=== PATIENT | female | born 1930 | race Caucasian/White ===

== ENCOUNTER 2018-10-14 12:28 | Inpatient (IN) ==
--- NOTE | 2018-10-14 12:57 | Diag Imaging Result Doc PS360 ---
EXAM: CT HEAD W/O CONTRAST HISTORY: AMS TECHNIQUE: CT head without contrast COMPARISON: None. FINDINGS: No parenchymal hemorrhage. No epidural or subdural hematoma. No subarachnoid hemorrhage. There is atrophy with chronic microvascular ischemic changes. No mass identified on this noncontrasted exam. No hydrocephalus. There is mucosal thickening in the maxillary sinuses.. IMPRESSION: 1.No hemorrhage 2.Atrophy with chronic microvascular ischemic changes This exam was performed using automated exposure control, adjustment of mA or kV according to patient size, and/or use of iterative reconstruction technique. Electronically signed by Wilder Pal 10/14/2018 12:55 PM
[2018-10-14] MEDS ORDERED: CARDIZEM IV ONE (13:20)
[2018-10-14] MEDS ORDERED: NS 1,000 ML IV ONE ×3 (13:24→17:32)
--- NOTE | 2018-10-14 14:04 | PROVIDER DOCUMENTATION ---
This chart was entered by Blessing Arango Scribe, acting as scribe for Dorina Fonseca MD. HPI-General Adult - General Chief Complaint: Altered Mental Status Stated Complaint: AMS Time Seen by Provider: 10/14/18 12:41 Source: family Allergies/Adverse Reactions: Patient Allergies Allergy/AdvReac Type Severity Reaction Status Date / Time No Known Allergies Allergy Verified 10/14/18 14:20 Home Medications: Home Medication List Medication Instructions Recorded Confirmed Last Taken Type Amlodipine [Norvasc] 10 mg PO DAILY 10/14/18 10/14/18 10/14/18 History Famotidine [Pepcid AC] 20 mg PO QAM 10/14/18 10/14/18 10/14/18 History Lisinopril/Hydrochlorothiazide 1 each PO QAM 10/14/18 10/14/18 10/14/18 History [Lisinopril-Hctz 20-12.5 mg Tab] Metoprolol Succinate E.r. [Toprol 100 mg PO DAILY 10/14/18 10/14/18 10/14/18 History Xl] Naproxen Sodium [Aleve] 220 mg PO BID 10/14/18 10/14/18 1 Day Ago History ~10/13/18 - History of Present Illness -Gen Adult Nature of Presenting Problems: 88 y/o female presents to ED with AMS and confusion onset 1 week ago. Family of pt is present and reports she has been complaining of low back pain, dysuria, and "pulling" at her underwear/pants for the past 2 weeks. Family states she can only move from her bed to a chair with lots of assistance and has not wanted to get out of bed for 1.5 weeks. Family reports she fell 1 month ago. Pt is alert and nontoxic. Location of Pain/Injury: reports: none Pain Radiation: reports: no radiation Quality of Pain: reports: none Severity: reports: mild Onset/Duration: reports: 1 week ago Timing: reports: still present Context/Activities at Onset: reports: none Modifying Factors: improves with: nothing Associated Symptoms: reports: back/neck pain (low back), fatigue, other (AMS, confusion, fall, limited movement, dysuria) Similar Symptoms Previously?: No Recently seen or treated by another doctor?: No Review of Systems - Adult - REVIEW OF SYSTEMS - ADULT ROS:: ROS per family Constitutional: reports: fatique, other (AMS, confusion). denies: chills, fever Eyes: reports: no symptoms reported Ears, Nose, Mouth & Throat: reports: no symptoms reported Cardiovascular: denies: chest pain, palpitations Respiratory: denies: cough, shortness of breath Gastrointestinal: denies: abdominal pain, diarrhea, nausea, vomiting Genitourinary: reports: dysuria, other (pulling at underwear/pants) Musculoskeletal: reports: back pain (low), other (fall). denies: joint pain Integumentary: reports: no symptoms reported Neurological: reports: other (AMS, confusion). denies: dizziness/vertigo, seizure Psychiatric: reports: no symptoms reported Endocrine: reports: no symptoms reported Hematologic/Lymphatic: reports: no symptoms reported Allergic/Immunologic: reports: no symptoms reported All Other Systems: Reviewed and Negative Past History - Adult - PAST MEDICAL HISTORY-ADULT Review of Records: reports: Old Records Reviewed, Nursing Assessment Review, Medications Reviewed Major Childhood Illnesses: reports: denies history Cardiovascular: reports: A-Fib Obstetrical/Gynecological: reports: other (breast cancer) - PRIOR SURGERIES/PROCEDURES Surgical/Procedure History: reports: none - IMMUNIZATION STATUS Childhood Immunizations: See Nurse Assessment Flu Vaccine: See Nurse Assessment - FAMILY HISTORY Family History: reviewed, not pertinent - SOCIAL HISTORY Smoking: non-smoker Substance Use: none/never Alcohol Use Frequency: never Living Situation: family Physical Exam-General - PHYSICAL EXAM-ADULT Exam Limited by: AMS Initial Vital Signs Reviewed: Yes - CONSTITUTIONAL General Appearance: appears well, alert, mild distress - EYES Eyes: PERRL/EOMI, pink conjunctivae - HEAD, EARS, NOSE, MOUTH & THROAT HENMT: normocephalic/atraumatic - NECK Neck: non-tender, supple - RESPIRATORY Respiratory: lungs clear, normal breath sounds - CARDIOVASCULAR Cardiovascular: tachycardia - GASTROINTESTINAL (ABDOMEN) Abdominal Exam: normal bowel sounds, soft - LYMPHATIC Lymphatic: no adenopathy - MUSCULOSKELETAL Back Exam: normal inspection Peripheral Pulses: radial (R): 2+, radial (L): 2+, dorsalis-pedis (R): 2+, dorsalis-pedis (L): 2+ - SKIN Integumentary: normal color, warm/dry - NEUROLOGIC Neurologic: wide area network engineer II-XII nml as tested, other (AMS) - PSYCHIATRIC Psych/Mental Status: disoriented x 3, anxious, other (AMS) Progress - PLAN OF CARE/RESULTS Progress/Plan/Lab Results: Vital Signs - 8 hr 10/14/18 13:15 Temperature 98.8 F Pulse Rate 136 H Respiratory Rate 22 Blood Pressure 146/115 O2 Sat by Pulse Oximetry 95 Orders Category Date Time Status CT HEAD W/O CONTRAST [CT] Stat Exams 10/14/18 12:40 Completed pt arrived in afib rate 130s w AMS, sent to CT and returned to room HR in 170s, awake and alert but not interactive for a good exam, she rolled to her left side without difficulty and no step offs or swelling of lower back which is the location that her family says she complains about, head CT unremarkable PMH afib, today with RVR, responding somewhat to cardizem 10mg but BP decreased and had to reduce, HR 130s-160s, likely being pushed by sepsis, will likely need digoxin IV, will d/w ICU hospitalist Laboratory Tests 10/14/18 10/14/18 10/14/18 13:05 13:05 13:05 WBC 11.94 H RBC 5.00 Hgb 15.2 Hct 45.6 MCV 91.2 MCH 30.4 MCHC 33.3 RDW Std Deviation 12.9 Plt Count 271 MPV 10.5 H Immature Gran % (Auto) 0.7 H Neut % (Auto) 82.1 H Lymph % (Auto) 7.6 L Kane % (Auto) 9.5 H Eos % (Auto) 0.0 Baso % (Auto) 0.1 Immature Gran # (Auto) 0.08 H Neut # (Auto) 9.81 H Lymph # (Auto) 0.91 L Kane # (Auto) 1.13 H Eos # (Auto) 0.00 Baso # (Auto) 0.01 PT 16.1 H INR 1.19 PTT (Actin FS) Sodium 138 Potassium 3.2 L Chloride 91 L Carbon Dioxide 25 Anion Gap 22 BUN 26 H Creatinine 0.8 Estimated GFR/1.73 m2 > 60 BUN/Creatinine Ratio 33 Glucose 195 H Calculated Osmolality 286 Calcium 9.9 Total Bilirubin 1.72 H AST 22 ALT 16 Alkaline Phosphatase 75 Creatine Kinase Troponin T Total Protein 7.3 Albumin 4.4 Globulin 2.9 Albumin/Globulin Ratio 1.5 Plasma Lactate Urine Source Urine Color Urine Turbidity Urine pH Ur Specific [place] Urine Protein Ur Glucose (Stick) Ur Ketones (Stick) Urine Blood Urine Nitrite Urine Bilirubin Urobilinogen Dipstick Urine Leukocytes Urine WBC (Auto) Urine RBC (Auto) U Epithel Cells (Auto) Urine Bacteria (Auto) Urine Crystals Small Round Cells Urine Casts Urine Yeast-like Cells 10/14/18 10/14/18 10/14/18 13:05 13:05 13:05 WBC RBC Hgb Hct MCV MCH MCHC RDW Std Deviation Plt Count MPV Immature Gran % (Auto) Neut % (Auto) Lymph % (Auto) Kane % (Auto) Eos % (Auto) Baso % (Auto) Immature Gran # (Auto) Neut # (Auto) Lymph # (Auto) Kane # (Auto) Eos # (Auto) Baso # (Auto) PT INR PTT (Actin FS) 27.0 Sodium Potassium Chloride Carbon Dioxide Anion Gap BUN Creatinine Estimated GFR/1.73 m2 BUN/Creatinine Ratio Glucose Calculated Osmolality Calcium Total Bilirubin AST ALT Alkaline Phosphatase Creatine Kinase 156 Troponin T Total Protein Albumin Globulin Albumin/Globulin Ratio Plasma Lactate 2.8 H Urine Source Urine Color Urine Turbidity Urine pH Ur Specific [place] Urine Protein Ur Glucose (Stick) Ur Ketones (Stick) Urine Blood Urine Nitrite Urine Bilirubin Urobilinogen Dipstick Urine Leukocytes Urine WBC (Auto) Urine RBC (Auto) U Epithel Cells (Auto) Urine Bacteria (Auto) Urine Crystals Small Round Cells Urine Casts Urine Yeast-like Cells 10/14/18 10/14/18 13:05 13:51 WBC RBC Hgb Hct MCV MCH MCHC RDW Std Deviation Plt Count MPV Immature Gran % (Auto) Neut % (Auto) Lymph % (Auto) Kane % (Auto) Eos % (Auto) Baso % (Auto) Immature Gran # (Auto) Neut # (Auto) Lymph # (Auto) Kane # (Auto) Eos # (Auto) Baso # (Auto) PT INR PTT (Actin FS) Sodium Potassium Chloride Carbon Dioxide Anion Gap BUN Creatinine Estimated GFR/1.73 m2 BUN/Creatinine Ratio Glucose Calculated Osmolality Calcium Total Bilirubin AST ALT Alkaline Phosphatase Creatine Kinase Troponin T < 0.010 Total Protein Albumin Globulin Albumin/Globulin Ratio Plasma Lactate Urine Source CATH Urine Color ORANGE Urine Turbidity TURBID Urine pH 7.5 Ur Specific [place] 1.019 Urine Protein 600 A Ur Glucose (Stick) NEGATIVE Ur Ketones (Stick) 100 A Urine Blood MODERATE A Urine Nitrite NEGATIVE Urine Bilirubin NEGATIVE Urobilinogen Dipstick 6 A Urine Leukocytes MODERATE A Urine WBC (Auto) TNTC A Urine RBC (Auto) TNTC A U Epithel Cells (Auto) >10 A Urine Bacteria (Auto) 4+ Urine Crystals TRIPLE PHOS PRESENT Small Round Cells Not Reportable Urine Casts NONE SEEN Urine Yeast-like Cells NONE SEEN d/w pt and family findings, treatment here and admit, with RISK ADVISOR hospitalist in room, d/w pt and family DNR status, there is no form with her wishes and she is not always able to be appropriate to have this kind of conversation, RISK ADVISOR has asked cardiology to get involved with afib w RVR and will leave the digoxin or not with the cards MD Result Diagrams: 10/14/18 13:05 10/14/18 13:05 - EKG 1 Time of EKG reading by physician:: 12:54 EKG Read and Signed by:: Dorina Fonseca EKG Interpretation (*Must complete 3 of following elements*): Abnormal Rate: 135 Rhythm: Afib w/ RVR [place]: normal QRS: RBB, other (L posterior fascicular block; bifascicular block) GA Interval: normal ST Wave: normal 2 Time of EKG reading by physician:: 15:23 EKG Read and Signed by:: Dorina Fonseca EKG Interpretation (*Must complete 3 of following elements*): Abnormal Rate: 142 Rhythm: Afib with RVR [place]: right QRS: normal, other (possible R ventricular hypertrophy) GA Interval: normal ST Wave: non-specific ST changes (consider anterior ischemia) - XRAY 1 XRAY Study: Lumbar Spine Impression: Abnormal (COMMENT: There is generalized osteopenia. There is loss of height anteriorly at T11. There is subsidence of the upper endplate of L4 and possibly also of L5. Findings present in T11 were present on the lateral chest radiograph of 05/18/2016. No previous studies are available for comparison of the lumbar spine. IMPRESSION: Osteoporosis with old compression fractures of T11 and L4. Electronically signed by Kadeem Fiore 10/14/2018 2: 37 PM) 2 XRAY Study: Chest Impression: Abnormal (COMMENT: The left hemidiaphragm is elevated. There is a large hiatal hernia. There is some ill-defined opacity in the left lower lobe which was not appreciable on the previous study of 08/17/2016. IMPRESSION: Left lower lobe and possible lingular atelectasis versus pneumonia. Electronically signed by Kadeem Fiore 10/14/2018 2:46 PM) - CT/MRI 1 CT Study: Head Impression: Normal (FINDINGS: No parenchymal hemorrhage. No epidural or subdural hematoma. No subarachnoid hemorrhage. There is atrophy with chronic microvascular ischemic changes. No mass identified on this noncontrasted exam. No hydrocephalus. There is mucosal thickening in the maxillary sinuses.. IMPRESSION: 1.No hemorrhage 2.Atrophy with chronic microvascular ischemic changes This exam was performed using automated exposure control, adjustment of mA or kV according to patient size, and/or use of iterative reconstruction technique. Electronically signed by Wilder Pal 10/14/2018 12:55 PM) Departure - Departure Date of Disposition Decision: 10/14/18 Time of Disposition Decision: 16:30 DIAGNOSIS: Atrial fibrillation with rapid ventricular response, UTI (urinary tract infection), Compression fracture, Sepsis Pneumonia Qualifiers: Aspiration pneumonia type: unspecified Laterality: left Lung location: lower lobe of lung Disposition: ADMITTED INPATIENT 09 Certified Medical Emergency: Emergent Condition: Fair Referrals and Follow-Ups: None,PCP [Primary Care Provider] - - Critical Care Note This patient required my direct & personal management of CC.: Yes Total Time (mins): 30 Critical Care Statement: This patient required my direct personal management to treat or rule out processes, the absence of which, could potentiallly result in sudden, clinically significant life or limb threatening deterioration. Attestation - Physician/ DANILO Attestation Patient care was provided by Advanced Practice Provider:: No The physician spent face to face time with patient:: Yes Advanced Practice Provider documentation review:: Supervising physician onsite and consulted in the evaluation and care of this patient. The physician did have a face to face encounter with the patient. This chart was documented by the indicated scribe, (Blessing Arango, Jose) and accurately reflects the services I performed and decisions made by me, Dorina Fonseca MD, as attested by the provider's signature.
[2018-10-14 14:07] LABS: BASO# 0.01 X1000 (0.0-0.2); BASO% 0.1 % (0.0-0.8); HEMATOCRIT 45.6 % (37.0-47.0); HEMOGLOBIN 15.2 g/dL (12.0-16.0); IMM GRAN# 0.08 X1000 (0.0-0.04); IMM GRAN% 0.7 % (0.0-0.5); LYMPH# 0.91 X1000 (1.2-3.4); LYMPH% 7.6 % (20.5-51.1); MCH 30.4 PG (27-31); MCHC 33.3 g/dL (33-37); MCV 91.2 FL (81-99); MONO# 1.13 X1000 (0.11-0.59); MONO% 9.5 % (1.7-9.3); MPV 10.5 FL (7.4-10.4); NEUT# 9.81 X1000 (1.4-6.5); NEUT% 82.1 % (42.2-75.2); PLT 271 X1000 (130-400); RDW 12.9 % (11.5-14.5); WBC 11.94 X1000 (4.8-10.8)
[2018-10-14 14:11] LABS: INR 1.19; PROTIME 16.1 Seconds (11.0-16.0)
[2018-10-14 14:12] LABS: AGAP 22; ALB/GLOB RATIO 1.5; ALBUMIN 4.4 g/dL (3.5-5.0); ALKALINE PHOSPHATASE 75 U/L (32-104); BUN 26 mg/dL (8-22); CALCIUM 9.9 mg/dL (8.8-10.2); CHLORIDE 91 mmol/L (98-107); COSMO 286; CREATININE 0.8 mg/dL (0.5-0.9); ESTIMATED GFR > 60; GLUCOSE 195 mg/dL (70-104); GOT 22 U/L (10-30); GPT 16 U/L (10-36); POTASSIUM 3.2 mmol/L (3.5-5.1); SODIUM 138 mmol/L (136-145); TCO2 25 mmol/L (25-35); TOTAL BILIRUBIN 1.72 mg/dL (0.20-1.00); TOTAL PROTEIN 7.3 g/dL (6.3-8.3)
[2018-10-14 14:37] LABS: BILIRUBIN URINE NEGATIVE (NEGATIVE); BLOOD URINE MODERATE (NEGATIVE); COLOR ORANGE; GLUCOSE URINE NEGATIVE (NEGATIVE); KETONE URINE 100 mg/dL (NEGATIVE); LEUKOCYTES URINE MODERATE (NEGATIVE); NITRITE URINE NEGATIVE (NEGATIVE); PH URINE 7.5; PROTEIN URINE 600 mg/dL (NEGATIVE); SP GRAVITY URINE 1.019; TURBIDITY URINE TURBID (CLEAR); UR EPITHELIAL CELLS >10 /HPF (<10); URINE BACTERIA 4+ /HPF; URINE RBC TNTC /HPF (<10); URINE SOURCE CATH; URINE WBC TNTC /HPF (<10); UROBILINOGEN URINE 6 mg/dL (NORMAL)
--- NOTE | 2018-10-14 14:39 | Diag Imaging Result Doc PS360 ---
EXAM: P'TBLE-LUMBAR SPINE 1 VIEW 10/14/2018 HISTORY: low back pain TECHNIQUE: Crosstable lateral COMMENT: There is generalized osteopenia. There is loss of height anteriorly at T11. There is subsidence of the upper endplate of L4 and possibly also of L5. Findings present in T11 were present on the lateral chest radiograph of 05/18/2016. No previous studies are available for comparison of the lumbar spine. IMPRESSION: Osteoporosis with old compression fractures of T11 and L4. Electronically signed by Kadeem Fiore 10/14/2018 2:37 PM
[2018-10-14] MEDS: CARDIZEM 100 MG/NS 100 MG/100 ML IVPB IV SCH (14:47)
--- NOTE | 2018-10-14 14:49 | Diag Imaging Result Doc PS360 ---
EXAM: CHEST-1 VIEW 10/14/2018 HISTORY: SEPSIS PROTOCOL TECHNIQUE: AP portable at 1435 COMMENT: The left hemidiaphragm is elevated. There is a large hiatal hernia. There is some ill-defined opacity in the left lower lobe which was not appreciable on the previous study of 08/17/2016. IMPRESSION: Left lower lobe and possible lingular atelectasis versus pneumonia. Electronically signed by Kadeem Fiore 10/14/2018 2:46 PM
[2018-10-14] MEDS ORDERED: ZOFRAN IV ONE ×2 (15:13→17:36)
--- NOTE | 2018-10-14 15:13 | EKG Report ---
Test Performed on : 10/14/2018 12:54:03 PM Test Reason : ED. NO order in [place] Blood Pressure : / mmHG Vent. Rate : 135 BPM Atrial Rate : 150 BPM P-R Int : 000 ms QRS Dur : 124 ms QT Int : 366 ms P-R-T Axes : 000 126 -03 degrees QTc Int : 549 ms Atrial fibrillation. with rapid ventricular response. Right bundle branch block Left posterior fascicular block Bifascicular block Abnormal ECG No previous ECGs available Unconfirmed Result
[2018-10-14] MEDS ORDERED: VANCOMYCIN 1 GM/NS 1 GM/250 ML IVPB IV ONE (15:15)
[2018-10-14] MEDS ORDERED: ZOSYN 4.5 GM in NS 100 ML IV ONE (15:15)
[2018-10-14 15:21] LABS: URINE CASTS NONE SEEN; URINE CRYSTALS TRIPLE PHOS PRESENT; URINE YEAST NONE SEEN
[2018-10-14] MEDS ORDERED: LANOXIN IV ONE (16:47)
[2018-10-14] MEDS ORDERED: DUONEB (A & A) INH PRN (16:49)
[2018-10-14] MEDS ORDERED: KLOR-CON PO ONE (16:49)
[2018-10-14] MEDS ORDERED: TYLENOL PO PRN (16:49)
[2018-10-14] MEDS ORDERED: NS NEB INH SCH (17:00)
[2018-10-14] MEDS ORDERED: MAGNESIUM SULFATE 2 GM/S.W.I. 2 GM/50 ML IVPB IV ONE (17:31)
--- NOTE | 2018-10-14 18:14 | HISTORY AND PHYSICAL ---
DATE OF ADMISSION: 10/14/2018. PRIMARY CARE PHYSICIAN: Dr. Shaun Keys. CHIEF COMPLAINT: Back pain, lower back pain, dysuria, foul-smelling urine, nausea and some confusion. HPI: Ms. Nenita Carrillo is an [id number] female who is in no acute distress. She has a history of atrial fibrillation and is only on aspirin. No fan mail clerk managing her. She presents with complaints of lower back pain, urinary symptoms such as dysuria, foul-smelling urine and frequency and also some nausea and decreased appetite with no bowel movement for about two weeks. She denies shortness of breath or cough. We will admit to the ICU as she was started on diltiazem which made her hypotensive. It is obvious that she has a urinary tract infection per urinalysis, and then on her chest x-ray, she has a left lower lobe pneumonia. We will consult cardiology and treat her for sepsis. PAST MEDICAL HISTORY: 1. Atrial fibrillation. 2. Hypertension. 3. Left breast cancer since 2016 on chemotherapy pills. Followed by Dr. Patton. 4. Glaucoma. Can only make out shapes. 5. Bilateral knee arthritis. SURGICAL HISTORY: None. SOCIAL HISTORY: Denies tobacco or alcohol. Lives with her daughter and son. She is essentially chair bound but has been bed bound for two weeks. FAMILY HISTORY: Hypertension and stroke in father. Mother with diabetes and heart attack. ALLERGIES: NO KNOWN DRUG ALLERGIES. HOME MEDICATIONS: 1. Norvasc 10 mg p.o. daily. 2. Pepcid AC 20 mg p.o. daily. 3. Lisinopril hydrochlorothiazide 20-12.5 mg, 1 tablet p.o. daily. 4. Toprol XL 100 mg p.o. daily. 5. Aleve 220 mg p.o. twice daily. 6. Aspirin daily. REVIEW OF SYSTEMS: All are negative except for those mentioned above in the HPI. She has also gone from being chair bound to bed bound over the last two weeks. PHYSICAL EXAM: VITAL SIGNS: Temperature 98.8, heart rate 31, blood pressure 124/67 and O2 saturation 94% on room air. GENERAL: Ms. Nenita Carrillo is an [id number] female. She is in no acute distress. She is wanting to go home, but she is able to follow some commands and able to answer some questions. HEENT: Normocephalic, atraumatic. Pupils are equal, round and reactive to light. Extraocular movements intact. Mucous membranes are dry. NECK: Trachea midline. CARDIOVASCULAR: Irregularly, irregular tachycardic rate and rhythm with no rubs , gallops or murmurs. Trace lower extremity edema. There are +2 dorsalis and radial pulses. Negative JVD or carotid bruits. PULMONARY: Clear to auscultate bilateral breath sounds. No accessory muscle use or work of breathing noted. GI: Soft and nontender. Nondistended. Positive bowel sounds x4. EXTREMITIES: Moves all extremities equally with decreased range of motion and strength. NEUROLOGICAL: Oriented x2 to name and location. Disoriented to time and year. She will follow some simple commands. She does seem mildly agitated. Requesting to go home. SKIN: Warm, dry and intact. LABORATORY DATA: White blood cells 11,000, hemoglobin 15, hematocrit 45 and platelet count 271. INR 1.19. PTT 27. Sodium 138, potassium 3.2, BUN 26, creatinine 0.8, glucose 195 and calcium 9.9, bilirubin 1.72, AST 22, ALT 16, CK 156, troponin less than 0.01, albumin 4.4, and serum lactate 2.8. Urinalysis is turbid, 600 protein, 100 ketones, moderate blood, negative nitrite, moderate leukocytes, too numerous to count white blood cells, too numerous to count red blood cells, 4+ bacteria. IMAGING: Head CT showed no hemorrhage. Chronic microvascular ischemic changes. Nothing acute. Lumbar spine x-ray showed osteoporosis with old compression fractures of T11 and L4. Chest x-ray showed left lower lobe and possible lingular atelectasis versus pneumonia. EKG showed atrial fibrillation with a rapid ventricular response rate of 135. ASSESSMENT AND PLAN: 1. Sepsis secondary to left lower lobe pneumonia and urinary tract infection. She has positive lactate and positive white blood cells. She will be on IV fluid hydration per protocol and broad spectrum antibiotics. 2. Community acquired pneumonia. Again, she will be on antibiotic therapy. We will get a sputum culture and do Xopenex and Atrovent for nebulizers. 3. Urinary tract infection. See #1. 4. Atrial fibrillation with rapid ventricular response with a history of chronic atrial fibrillation on aspirin therapy only. Likely tachycardic secondary to sepsis. She received Cardizem. The initial bolus, though, did drop her blood pressure. She has been continued on the drip with a blood pressure ranging in the one-teens. We will do one time digoxin. Should improve after IV fluid hydration and antibiotic therapy. We will consult cardiology, Dr. Stratton. 5. Hypertension. Hold antihypertensives as she has had hypotension here. 6. Left breast cancer diagnosed in 2016. Only on chemotherapy pills. Followed by Dr. Patton. No mastectomy. 7. Glaucoma. She is legally blind. She can only make out shapes. 8. DVT prophylaxis. She is on aspirin. We will do low dose Lovenox. Dictated by JC Pratt for Dori Goldstein MD cc: JC Pratt MD I performed a face to face encounter on this patient. All labs and imaging were reviewed by me. I agree with the H&P as dictated. The patient presented to the ER with a chief complaint of confusion, dysuria and back pain. The patient was noted to have a UTI. A chest xray was done which revealed a pneumonia. On exam, the patient was noted to be oriented to person and place only. Her heart sounds were irregularly irregular and her breath sounds were coarse to auscultation bilaterally. The patient will be admitted with a diagnosis of sepsis secondary to pneumonia and uti. Blood and urine cultures have been obtained. IV fluids and broad spectrum antibiotics will also be initiated. MTDD
[2018-10-14] MEDS: XOPENEX NEB INH SCH ×2 (19:30→22:45)
[2018-10-14] MEDS: ATROVENT NEB INH SCH ×2 (19:30→22:45)
[2018-10-14] MEDS: ZOSYN 3.375 GM in NS 50 ML IV SCH (22:33)
[2018-10-15] MEDS: CARDIZEM 100 MG/NS 100 MG/100 ML IVPB IV SCH ×2 (00:25→17:09)
[2018-10-15] MEDS: XOPENEX NEB INH SCH ×6 (03:35→23:30)
[2018-10-15] MEDS: ATROVENT NEB INH SCH ×6 (03:35→23:30)
[2018-10-15 05:30] LABS: ALLEN TEST YES; BE -3.4 mmoll (-3.0-3.0); BLOOD TYPE ARTERIAL; HCO3-(ACT) 22.2 mmoll (20.0-26.0); O2(CT) 17.6 mL/dL (15.0-23.0); PCO2(98.6) 31 mmHg (35-45); PO2(98.6) 109 mmHg (60-100); SAMPLE BLOOD; SAO2 98.4 % (95.0-100.0); THB 13.1 g/dL (11.5-17.4); pH(98.6) 7.42 (7.35-7.45)
[2018-10-15 05:31] LABS: MODALITY CANNULA
[2018-10-15] MEDS: ZOSYN 3.375 GM in NS 50 ML IV SCH ×3 (05:55→20:15)
[2018-10-15] MEDS ORDERED: LOVENOX SUBQ SCH (06:00)
[2018-10-15 07:26] LABS: EOS# 0.06 X1000 (0.0-0.7); EOS% 0.4 % (0.0-10.0); HEMATOCRIT 41.6 % (37.0-47.0); HEMOGLOBIN 13.8 g/dL (12.0-16.0); IMM GRAN# 0.11 X1000 (0.0-0.04); IMM GRAN% 0.7 % (0.0-0.5); LYMPH# 1.01 X1000 (1.2-3.4); LYMPH% 6.6 % (20.5-51.1); MCHC 33.2 g/dL (33-37); MCV 93.5 FL (81-99); MONO# 2.02 X1000 (0.11-0.59); MONO% 13.3 % (1.7-9.3); MPV 10.9 FL (7.4-10.4); NEUT# 12.02 X1000 (1.4-6.5); PLT 199 X1000 (130-400); RBC 4.45 XMIL (4.2-5.4); RDW 13.3 % (11.5-14.5); WBC 15.22 X1000 (4.8-10.8)
[2018-10-15 07:49] LABS: AGAP 22; ALB/GLOB RATIO 1.4; ALBUMIN 3.9 g/dL (3.5-5.0); ALKALINE PHOSPHATASE 63 U/L (32-104); BUN 28 mg/dL (8-22); CHLORIDE 102 mmol/L (98-107); COSMO 292; CREATININE 0.7 mg/dL (0.5-0.9); ESTIMATED GFR > 60; GLUCOSE 164 mg/dL (70-104); GOT 26 U/L (10-30); GPT 16 U/L (10-36); POTASSIUM 3.5 mmol/L (3.5-5.1); SODIUM 142 mmol/L (136-145); TCO2 18 mmol/L (25-35); TOTAL BILIRUBIN 1.16 mg/dL (0.20-1.00); TOTAL PROTEIN 6.7 g/dL (6.3-8.3)
--- NOTE | 2018-10-15 08:26 | EKG Report ---
Test Performed on : 10/14/2018 3:23:56 PM Test Reason : ED. NO EKG ORDER FOR MUSE Blood Pressure : / mmHG Vent. Rate : 142 BPM Atrial Rate : 156 BPM P-R Int : 000 ms QRS Dur : 114 ms QT Int : 346 ms P-R-T Axes : 000 122 023 degrees QTc Int : 532 ms Atrial fibrillation. with rapid ventricular response. Right axis deviation Possible Right ventricular hypertrophy T wave abnormality, consider anterior ischemia Abnormal ECG When compared with ECG of 14-OCT-2018 12:54, (Unconfirmed) (RBBB and left posterior fascicular block) is no longer present Unconfirmed Result
[2018-10-15] MEDS ORDERED: ASPIRIN PO SCH (09:00)
[2018-10-15] MEDS: HALDOL IM PRN (09:30)
[2018-10-15] MEDS ORDERED: GEODON IM ONE (10:48)
[2018-10-15] MEDS ORDERED: STERILE WATER INJ. INJ ONE (10:48)
[2018-10-15] MEDS ORDERED: NS 500 ML ONE (11:23)
--- NOTE | 2018-10-15 12:06 | CARDIOLOGY CONSULTATION ---
DATE: 10/15/2018 IMPRESSION: 1. Atrial fibrillation with rapid ventricular rate. 2. Currently admitted with sepsis related to left lower lobe pneumonia and urinary tract infection. 3. Hypertension. 4. Breast cancer involving left breast, diagnosed in 2016. The patient has not had a mastectomy and is being managed with oral chemotherapy. RECOMMENDATIONS: 1. Continue IV Cardizem for rate control. 2. Add digoxin. 3. When the patient can intake orally, we will consider metoprolol. 4. Anticoagulate with Lovenox. 5. Echocardiography. 6. Check thyroid function studies. 7. CHADS-VASc score is 3. Anticoagulation is indicated if her atrial fibrillation is recurrent. 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 HISTORY OF PRESENT ILLNESS: This 88-year-old white female with a past history of hypertension, breast cancer, and glaucoma was admitted with confusion, back discomfort, dysuria, and some nausea. She remains confused, not able to give much in the way of history at the present. There has been some recent frequency and dysuria, as well as nausea and decreased appetite for the past week or so. There has been no shortness of breath, no cough nor chest pain. Chest x-ray suggests left lower lobe pneumonia. She is in atrial fibrillation with rapid ventricular rate, and she has been started on intravenous Cardizem. Her blood pressure has tended to be significantly reduced with IV Cardizem. She received 1 dose of digoxin yesterday. PAST MEDICAL HISTORY: 1. Previous atrial fibrillation in the past. 2. Hypertension. 3. Left breast cancer, diagnosed in 2016. She has not had a mastectomy. 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 She is followed by Dr. Patton. 4. Glaucoma. 5. Bilateral knee arthritis. ALLERGIES: She has no known drug allergies. MEDICATIONS: Currently as listed. SOCIAL HISTORY: She lives with her daughter and son. She is not very mobile and reportedly is "chair bound." She does not smoke or use alcohol. FAMILY HISTORY: Negative for premature coronary disease and positive for stroke and hypertension. REVIEW OF SYSTEMS: Not reliably obtainable given the patient's confusion. PHYSICAL EXAMINATION: General: On physical exam, this is an elderly white female in no distress, who is confused. Vital Signs: Blood pressure 113/80, heart rate 93 and irregular, oxygen saturation 93% to 97% on nasal cannula oxygen. HEENT: Right pupil is larger than the left, anisocoria. Extraocular muscles appear intact. Mucous membranes are moist. Neck: Supple without discernible jugular distention. No carotid bruits. Chest: Clear to auscultation anteriorly. Cardiac Exam: Reveals an irregular rate and rhythm without appreciable murmur or gallop. Abdomen: Soft, nontender. Bowel sounds audible. Extremities: Without edema. Neurologic: Reveals her to be awake and responsive. She gives brief answers to questions and is confused. Speech is fluent. She moves all 4 extremities equally well. DIAGNOSTIC DATA: A 12-lead EKG demonstrates atrial fibrillation with rapid ventricular rate. Right bundle-branch block and right axis deviation. Nonspecific T-wave abnormality demonstrated. Laboratory data includes white blood cell count 15.22, hematocrit 41.6, hemoglobin 13.8, platelet count 199,000. Sodium 142, potassium 3.5, chloride 102, carbon dioxide 18, BUN 28, creatinine 0.7. Troponin T less than 0.01. CPK 156. cc: Alex Grace MD
--- NOTE | 2018-10-15 12:49 | Diag Imaging Result Doc PS360 ---
CHEST-PORTABLE - 10/15/2018 INDICATION: PICC line placement verification COMPARISON: 10/14/2018 FINDINGS: There is a new right PICC line in good position with the catheter tip at the lower SVC. Stable cardiomegaly and pulmonary vascular congestion. Stable opacification of the left lung base. No new infiltrates. IMPRESSION: Good right PICC line placement. Electronically signed by Ar Serrano 10/15/2018 12:47 PM
[2018-10-15] MEDS: LANOXIN IV SCH ×2 (12:57→16:01)
[2018-10-15 14:08] LABS: URINE SOURCE CATH
[2018-10-15 14:20] LABS: BILIRUBIN URINE NEGATIVE (NEGATIVE); BLOOD URINE LARGE (NEGATIVE); COLOR BROWN; GLUCOSE URINE TRACE mg/dL (NEGATIVE); KETONE URINE 80 mg/dL (NEGATIVE); LEUKOCYTES URINE LARGE (NEGATIVE); NITRITE URINE NEGATIVE (NEGATIVE); PH URINE 6.5; PROTEIN URINE 200 mg/dL (NEGATIVE); SP GRAVITY URINE 1.023; TURBIDITY URINE TURBID (CLEAR); UR EPITHELIAL CELLS >10 /HPF (<10); URINE BACTERIA 1+ /HPF; URINE RBC TNTC /HPF (<10); URINE WBC TNTC /HPF (<10); UROBILINOGEN URINE 3 mg/dL (NORMAL)
[2018-10-15 14:30] LABS: URINE CASTS NONE SEEN; URINE CRYSTALS NONE SEEN; URINE YEAST NONE SEEN
[2018-10-15 14:31] LABS: URINE SMALL ROUND CELLS TRANS PRESENT
[2018-10-15] MEDS ORDERED: VANCOMYCIN IV PER PHARMACY MISC SCH (16:00)
--- NOTE | 2018-10-15 16:30 | PROGRESS NOTE ---
DATE: 10/15/2018 SUBJECTIVE: The patient is resting in bed, not in any obvious distress. OBJECTIVE: Vital Signs: Vital signs are as follows: Temperature is 98.1 degrees, pulse 91, respiratory rate 16, blood pressure is 112/80, oxygen saturation is 95%. HEENT: Atraumatic and normocephalic. Cardiovascular system: S1, S2 irregular, tachycardic. Respiratory system: Has evidence of good air entry bilaterally. Abdomen: Soft, nontender. No masses felt. Extremities: No evidence of edema. Central nervous system: Could not be adequately assessed. The patient was resting at time of my visit. LABS AND X-RAYS: WBC 15.22, hematocrit is 41.6 with a platelet count of 199. Sodium is 142, potassium 3.5, chloride 102, bicarbonate is 18. BUN is 29, creatinine 0.7. Urine culture shows gram-negative rods. X-ray of the chest shows opacification of the left lung base. ASSESSMENT AND PLAN: 1. Sepsis secondary to urinary tract infection/pneumonia. Continue antibiotics. Follow up on culture report. 2. Community-acquired pneumonia. Continue antibiotics. Follow up on sputum and blood cultures. 3. Urinary tract infection. Continue antibiotics. Follow up on urine culture. 4. Atrial fibrillation. Continue Cardizem for rate control. 5. Hypertension. Antihypertensives on hold in light of hypotension. 6. History of left breast cancer. Aware. 7. 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 8. Deep vein thrombosis prophylaxis. Lovenox. cc: Jose Miguel Shukla MD
--- NOTE | 2018-10-15 17:09 | ECHO REPORT ---
ORDER DATE: 10/15/2018 INTERPRETING PHYSICIAN: Romulo Bustamante MD INDICATION: An 88-year-old female with dyspnea, atrial fibrillation, hypertension, and breast cancer. M-MODE MEASUREMENTS: Left ventricle end diastole: 4.2 cm. Left ventricle end systole: 2.9 cm. Posterior wall: 1.0 cm. Interventricular septum: 1.0 cm. Left atrium: 5.0 cm. Aortic root: 3.6 cm. SUMMARY OF 2-DIMENSIONAL IMAGIN. This study is technically difficult. The apical views are foreshortened. Apical windows are limited. The patient is in atrial fibrillation. 2. The global systolic function is decreased. Ejection fraction of the left ventricle is estimated at 45% with apical anterior hypokinesis to akinesis. 3. There is also impairment of the apical portion of the right ventricle. The right ventricle is moderately enlarged. 4. The tricuspid valve shows a moderate degree of regurgitation. 5. Pulmonary systolic pressure is estimated at 48 to 53 mmHg. 6. The pulmonic valve is unremarkable. 7. The aortic valve has 3 cusps and they open normally. Color flow mapping is unremarkable. 8. The mitral valve opens normally. Color flow mapping is unremarkable. 9. Diastolic function cannot be properly evaluated here because of the atrial fibrillation. 10.The left atrium is significantly enlarged. 11.There is no pericardial effusion and no sign of thrombus. SUMMARY: In summary, this study shows: 1. Psmh-[id number] impaired systolic function of the left ventricle with apical hypokinesis to akinesis. Ejection fraction is 45%. 2. Enlarged right ventricle with apical impairment of the right ventricle also. 3. Significantly enlarged left atrium. 4. Moderate tricuspid regurgitation. 5. Pulmonary pressure of 48 to 53 mmHg. Clinical correlation is strongly recommended. Consider obtaining a myocardial perfusion study on her. cc: MD Otilia Salinas PA
[2018-10-15] MEDS: VANCOMYCIN 1.4 GM in NS 250 ML IV SCH (17:19)
[2018-10-15] MEDS: LOVENOX SUBQ SCH (17:59)
[2018-10-16] MEDS: ZOSYN 3.375 GM in NS 50 ML IV SCH ×4 (01:18→18:12)
[2018-10-16] MEDS: CARDIZEM 100 MG/NS 100 MG/100 ML IVPB IV SCH ×2 (02:13→16:02)
[2018-10-16] MEDS: XOPENEX NEB INH SCH ×6 (03:23→23:27)
[2018-10-16] MEDS: ATROVENT NEB INH SCH ×6 (03:23→23:27)
[2018-10-16] MEDS: LOVENOX SUBQ SCH ×2 (05:20→18:12)
[2018-10-16 05:44] LABS: EOS# 0.01 X1000 (0.0-0.7); EOS% 0.1 % (0.0-10.0); HEMATOCRIT 40.5 % (37.0-47.0); HEMOGLOBIN 13.5 g/dL (12.0-16.0); IMM GRAN# 0.11 X1000 (0.0-0.04); IMM GRAN% 0.7 % (0.0-0.5); LYMPH# 0.62 X1000 (1.2-3.4); LYMPH% 4.2 % (20.5-51.1); MCH 31.2 PG (27-31); MCHC 33.3 g/dL (33-37); MCV 93.5 FL (81-99); MONO% 5.4 % (1.7-9.3); MPV 11.1 FL (7.4-10.4); NEUT# 13.27 X1000 (1.4-6.5); NEUT% 89.6 % (42.2-75.2); PLT 187 X1000 (130-400); RBC 4.33 XMIL (4.2-5.4); RDW 13.3 % (11.5-14.5); WBC 14.81 X1000 (4.8-10.8)
[2018-10-16 05:57] LABS: AGAP 16; ALB/GLOB RATIO 1.4; ALBUMIN 3.9 g/dL (3.5-5.0); ALKALINE PHOSPHATASE 62 U/L (32-104); BUN 26 mg/dL (8-22); CALCIUM 9.4 mg/dL (8.8-10.2); CHLORIDE 104 mmol/L (98-107); COSMO 297; CREATININE 0.6 mg/dL (0.5-0.9); ESTIMATED GFR > 60; GLUCOSE 190 mg/dL (70-104); GOT 29 U/L (10-30); GPT 18 U/L (10-36); POTASSIUM 3.5 mmol/L (3.5-5.1); SODIUM 144 mmol/L (136-145); TCO2 24 mmol/L (25-35); TOTAL BILIRUBIN 0.97 mg/dL (0.20-1.00); TOTAL PROTEIN 6.7 g/dL (6.3-8.3)
[2018-10-16 07:06] LABS: LYMPHS 5 % (21-51); MONO 5 % (1-9); SEGS 90 % (42-75)
[2018-10-16] MEDS ORDERED: NS 1,000 ML IV SCH (12:45)
--- NOTE | 2018-10-16 15:12 | PROGRESS NOTE ---
DATE: 10/16/2018 SUBJECTIVE: The patient resting comfortably in bed. Her sensorium seems to be much better today. OBJECTIVE: Vital signs: Temperature is 97 degrees, pulse 90, respiratory rate is 21, blood pressure is 131/114, oxygen saturation is 99%. HEENT: She is atraumatic, normocephalic. Cardiovascular: S1, S2. Respiratory system: Has evidence of good air entry bilaterally. Abdomen: Soft, nontender. No masses felt. Extremities: No evidence of edema. Central nervous system: No obvious focal deficit noted. DIAGNOSTIC DATA: WBC is 13.81, hematocrit is 40.5, platelet count of 187,000. Sodium is 144, potassium 3.5, chloride is 104, bicarbonate 24, BUN is 26, creatinine 0.6. Urine culture positive for E coli. Blood cultures show coagulase-negative Staphylococcus. ASSESSMENT AND PLAN: 1. Sepsis secondary to urinary tract infection/pneumonia. Continue antibiotics. 2. Community-acquired pneumonia. Continue antibiotics. We will repeat blood cultures and also get sputum cultures. 3. Urinary tract infection. Continue antibiotics. 4. Atrial fibrillation. Heart rate is controlled. 5. Hypertension. Controlled. 6. History of left breast cancer. Aware. 7. History of glaucoma, as well as legal blindness. Aware. 8. Deep vein thrombosis prophylaxis. Lovenox. cc: Jose Miguel Shukla MD
[2018-10-16] MEDS: NS 1,000 ML IV SCH (15:58)
--- NOTE | 2018-10-16 17:33 | PROGRESS NOTE ---
DATE: 10/16/2018 SUBJECTIVE: Patient is more cooperative today. She seems less confused. She started to take oral intake. She denies any chest discomfort or shortness of breath. She continues in atrial fibrillation with controlled rate on low-dose intravenous Cardizem. OBJECTIVE: Vital Signs: Blood pressure 113/87, heart rate 90 and irregular with ECG monitor showing atrial fibrillation. Oxygen saturation 98% on nasal cannula oxygen. There is no significant jugular venous distention. Chest: Clear to auscultation anteriorly. Cardiac: Exam reveals an irregular rate and rhythm without appreciable murmur or gallop. Extremities: Without edema. LABORATORY DATA: Includes a white blood cell count of 14.81 and hematocrit 30. Laboratory Data includes a white blood cell count of 14.1, hematocrit 40.5, hemoglobin 13.5 and platelet count 187,000. Sodium 144, potassium 3.5, chloride 104, carbon dioxide 24, BUN 26, creatinine 0.6. Echocardiography reports left ventricular ejection fraction approximately 45% with the apical hypokinesis to akinesis. IMPRESSION: 1. Atrial fibrillation. Heart rate better controlled. 2. Patient currently admitted with sepsis, but relates urinary tract infection given abnormal urine culture showing E. Coli. 3. Abnormal echocardiography suggesting possibility of underlying regional coronary atherosclerosis. 4. Hypertension. 5. Breast cancer involving left breast diagnosed in 2016. She has been managed with oral chemotherapy. RECOMMENDATIONS: 1. Transition from intravenous Cardizem to oral metoprolol. 2. Continue with anticoagulation with Lovenox as tolerated. cc: Alex Grace MD
[2018-10-16] MEDS: LOPRESSOR PO SCH (20:30)
[2018-10-17] MEDS: ZOSYN 3.375 GM in NS 50 ML IV SCH ×4 (00:37→18:27)
[2018-10-17] MEDS: ATROVENT NEB INH SCH ×6 (03:46→23:22)
[2018-10-17] MEDS: XOPENEX NEB INH SCH ×6 (03:46→23:22)
[2018-10-17] MEDS: VANCOMYCIN 1.4 GM in NS 250 ML IV SCH (03:56)
[2018-10-17] MEDS: NS 1,000 ML IV SCH ×2 (04:53→22:00)
[2018-10-17] MEDS: LOVENOX SUBQ SCH ×3 (04:54→17:16)
[2018-10-17 05:24] LABS: HEMOGLOBIN 12.7 g/dL (12.0-16.0); IMM GRAN% 0.7 % (0.0-0.5); LYMPH# 0.84 X1000 (1.2-3.4); LYMPH% 5.8 % (20.5-51.1); MCH 30.9 PG (27-31); MCHC 32.6 g/dL (33-37); MCV 94.9 FL (81-99); MONO# 2.03 X1000 (0.11-0.59); MONO% 13.9 % (1.7-9.3); MPV 10.9 FL (7.4-10.4); NEUT# 11.62 X1000 (1.4-6.5); NEUT% 79.6 % (42.2-75.2); PLT 170 X1000 (130-400); RBC 4.11 XMIL (4.2-5.4); RDW 13.6 % (11.5-14.5); WBC 14.59 X1000 (4.8-10.8)
[2018-10-17 06:00] LABS: AGAP 13; ALB/GLOB RATIO 1.5; ALBUMIN 3.7 g/dL (3.5-5.0); ALKALINE PHOSPHATASE 60 U/L (32-104); BUN 27 mg/dL (8-22); CALCIUM 9.1 mg/dL (8.8-10.2); CHLORIDE 108 mmol/L (98-107); COSMO 301; CREATININE 0.6 mg/dL (0.5-0.9); ESTIMATED GFR > 60; GLUCOSE 167 mg/dL (70-104); GOT 46 U/L (10-30); GPT 34 U/L (10-36); POTASSIUM 3.6 mmol/L (3.5-5.1); SODIUM 147 mmol/L (136-145); TCO2 26 mmol/L (25-35); TOTAL BILIRUBIN 1.15 mg/dL (0.20-1.00); TOTAL PROTEIN 6.2 g/dL (6.3-8.3)
--- NOTE | 2018-10-17 08:17 | Diag Imaging Result Doc PS360 ---
CHEST-1 VIEW - 10/17/2018 INDICATION: pneumonia COMPARISON: Prior exams FINDINGS: There is a right PICC line in good position. Stable significant retrocardiac consolidation or effusion. IMPRESSION: No new abnormalities. Electronically signed by Ar Serrano 10/17/2018 8:15 AM
[2018-10-17] MEDS: LOPRESSOR PO SCH ×2 (10:06→18:31)
[2018-10-17] MEDS: CARDIZEM 125 MG in NS 100 ML IV SCH (17:16)
[2018-10-17] MEDS ORDERED: 1/2 NS 500 ML IV ONE (17:42)
[2018-10-17] MEDS ORDERED: D5 1/2 NS + KCL 10 MEQ 1,000 ML IV SCH (17:45)
--- NOTE | 2018-10-17 18:23 | PROGRESS NOTE ---
DATE: 10/17/2018 SUBJECTIVE: Patient more alert and responsive. She denies chest discomfort or dyspnea. Oral intake has been poor. She continues in atrial fibrillation and remains on intravenous low-dose Cardizem. OBJECTIVE: Vital signs: Blood pressure 131/89, heart rate 97 and irregular with ECG monitor showing atrial fibrillation. Oxygen saturation 97% on room air. HEENT: Mucous membranes appear somewhat dry. Neck: Supple with flat neck veins. Chest: Clear to auscultation anteriorly. Cardiovascular: Exam reveals an irregular rate and rhythm without appreciable murmur, rub, gallop. Extremities: There is no evidence of peripheral edema. DIAGNOSTIC STUDIES: Includes white blood cell count 14.59, hematocrit 39.0, hemoglobin 12.7, platelet count 170,000. Sodium 147, potassium 3.6, chloride 108, carbon dioxide 26, BUN 27, creatinine 0.6, glucose 167, albumin 3.7. IMPRESSION: 1. Atrial fibrillation. Duration not clear. 2. Patient currently admitted with sepsis related to urinary tract infection. 3. Hypertension. 4. Breast cancer. RECOMMENDATIONS: 1. Gently increase metoprolol. 2. The patient appears intravascularly volume depleted with hypernatremia. We will initiate intravenous fluid replacement. 3. Continue anticoagulation with Lovenox as tolerated. cc: Alex Grace MD
[2018-10-17] MEDS: POTASSIUM CHLORIDE 10 MEQ in 1/2 NS 1,000 ML IV SCH (18:24)
--- NOTE | 2018-10-17 19:29 | PROGRESS NOTE ---
DATE: 10/17/2018 INTERVAL HISTORY: The patient remains in atrial fibrillation with a regular heart rate. We attempted to take him off the diltiazem drip, but he became again tachycardic and this had to be restarted. Respiratory status is much improved. Denies any current dyspnea, and only minimal nonproductive cough. Afebrile overnight. No other acute events. No new complaints. REVIEW OF SYSTEMS: Negative review of systems. Twelve point Review of Systems negative except as per interval history. LABORATORY: WBC 14.5, hemoglobin 12.7, and hematocrit 39, and platelets 170, 000. Sodium 147, potassium 3.6, chloride 108. Glucose 167. IMAGING: Chest x-ray shows right PICC line in good position. Stable retrocardiac consolidation versus effusion. OBJECTIVE: Vital Signs: T-max 99 degrees, pulse 130, respirations 15, blood pressure 131/89, and O2 saturation 97% on room air. General: No acute distress. Vitals as above. HEENT: Normocephalic and atraumatic. Moist mucous membranes. No cervical adenopathy. Cardiovascular: Irregular and tachycardic. No murmurs noted. Pulmonary: Left lower lobe crackles. Otherwise clear to auscultation bilaterally. Abdomen: Soft, nontender, and nondistended. Bowel sounds positive. Extremities: Peripheral pulses intact. No clubbing, cyanosis or edema. Neurologic: Blind, which is baseline. No other cranial nerve deficits. No focal deficits identified. Psychiatric: Asleep but arouses easily. Answers all questions appropriately. Following commands well. Skin: No new rashes or lesions identified. ASSESSMENT AND PLAN: 1. Sepsis secondary to UTI and possible pneumonia. The patient on antibiotics with vancomycin and Zosyn. Initial blood cultures were 1 of 4 positive for coag-negative staph which is likely contaminant. Repeat blood cultures, no growth to date. Urine culture with Escherichia coli sensitive to everything except Macrobid which is intermediate. Off of oxygen and doing well. Respiratory status improved. May be able to deescalate antibiotics in the near future. 2. Atrial fibrillation with rapid ventricular response. Attempted to wean off till this morning, but developed RVR again. Placed back on diltiazem with good control of heart rate since then. Cardiology following. Awaiting further records from them. 3. Hypertension reasonable control on current regimen. Continue to monitor. 4. Glaucoma and essentially blind, stable. Continue home medications. 5. History of left breast cancer. Aware. 6. Pulmonary hypertension not a major issue at this point but will monitor volume status. 7. Hyperglycemia: no previous history of diabetes. will check A1C and monitor. 8. DVT prophylaxis. [place]. [facility]
[2018-10-17] MEDS: COMBIGAN OPHTH SOLN RIGHT EYE SCH (20:37)
[2018-10-17] MEDS: HALDOL IM PRN (20:38)
[2018-10-17] MEDS: LUMIGAN 0.01% OPH SOLUTION RIGHT EYE SCH (20:38)
[2018-10-18] MEDS: LOPRESSOR PO SCH ×4 (02:25→22:42)
[2018-10-18] MEDS: ZOSYN 3.375 GM in NS 50 ML IV SCH ×4 (02:30→18:30)
[2018-10-18] MEDS: XOPENEX NEB INH SCH ×6 (03:13→23:31)
[2018-10-18] MEDS: ATROVENT NEB INH SCH ×6 (03:13→23:31)
[2018-10-18 05:33] LABS: HEMOGLOBIN A1C 5.9 % (4.8-6.0)
[2018-10-18] MEDS: LOVENOX SUBQ SCH ×2 (05:59→17:37)
[2018-10-18] MEDS: COMBIGAN OPHTH SOLN RIGHT EYE SCH ×2 (09:25→21:55)
[2018-10-18] MEDS: NS 1,000 ML IV SCH ×3 (09:26→22:43)
[2018-10-18] MEDS: POTASSIUM CHLORIDE 10 MEQ in 1/2 NS 1,000 ML IV SCH ×2 (15:14→16:10)
[2018-10-18 16:04] LABS: AGAP 12; BUN 26 mg/dL (8-22); CALCIUM 9.1 mg/dL (8.8-10.2); CHLORIDE 108 mmol/L (98-107); COSMO 294; CREATININE 0.6 mg/dL (0.5-0.9); ESTIMATED GFR > 60; GLUCOSE 167 mg/dL (70-104); SODIUM 143 mmol/L (136-145); TCO2 23 mmol/L (25-35)
[2018-10-18] MEDS: VANCOMYCIN 1.4 GM in NS 250 ML IV SCH (16:12)
[2018-10-18 16:17] LABS: BASO# 0.01 X1000 (0.0-0.2); BASO% 0.1 % (0.0-0.8); EOS# 0.01 X1000 (0.0-0.7); EOS% 0.1 % (0.0-10.0); HEMATOCRIT 40.6 % (37.0-47.0); IMM GRAN# 0.16 X1000 (0.0-0.04); LYMPH# 2.29 X1000 (1.2-3.4); LYMPH% 14.7 % (20.5-51.1); MCH 30.6 PG (27-31); MCV 95.5 FL (81-99); MONO# 1.31 X1000 (0.11-0.59); MONO% 8.4 % (1.7-9.3); MPV 11.6 FL (7.4-10.4); NEUT# 11.77 X1000 (1.4-6.5); NEUT% 75.7 % (42.2-75.2); PLT 163 X1000 (130-400); RBC 4.25 XMIL (4.2-5.4); WBC 15.55 X1000 (4.8-10.8)
[2018-10-18 16:36] LABS: LYMPHS 8 % (21-51); MONO 8 % (1-9); SEGS 84 % (42-75)
[2018-10-18] MEDS ORDERED: 1/2 NS 500 ML IV ONE (17:15)
[2018-10-18] MEDS: ARIMIDEX PO SCH (17:49)
[2018-10-18] MEDS: CARDIZEM 125 MG in NS 100 ML IV SCH (18:35)
--- NOTE | 2018-10-18 21:37 | PROGRESS NOTE ---
DATE: 10/18/2018 SUBJECTIVE: The patient denies chest discomfort or dyspnea. Oral intake has remained poor. She is still on low-dose IV Cardizem for rate control with her atrial fibrillation. OBJECTIVE: Vital Signs: Blood pressure 134/96, heart rate 82 and irregular. Oxygen saturation 96% on room air. Chest is clear to auscultation anteriorly. Cardiac exam reveals an irregular rate and rhythm without appreciable murmur or gallop. There is no evidence of peripheral edema. LABORATORY DATA: Includes white blood cell count of 15.55, hematocrit 40.6, hemoglobin 13.0, platelet count 163,000, sodium 142, potassium 4.2, chloride 108, carbon dioxide 23, BUN 26, creatinine 0.6 glucose 167. IMPRESSION: 1. Atrial fibrillation. Heart rate is controlled on current regimen. 2. Recent sepsis, probably related to urinary tract infection. 3. Probable intravascular volume depletion. 4. Hypertension. 5. Breast cancer. RECOMMENDATIONS: 1. Continue efforts to hydrate parenterally. 2. Gently increase metoprolol. Hopefully intravenous Cardizem can be discontinued soon. 3. Continue anticoagulation with Lovenox as tolerated. cc: Alex Grace MD
[2018-10-18] MEDS: LUMIGAN 0.01% OPH SOLUTION RIGHT EYE SCH (21:55)
--- NOTE | 2018-10-19 01:15 | PROGRESS NOTE ---
DATE: 10/18/2018 SUBJECTIVE: Patient resting in bed. Not in any obvious distress. OBJECTIVE: Vital signs: Temperature is 97.9 degrees, pulse 82, respirations 24, blood pressure 134/96, oxygen saturation is 96%. HEENT: Atraumatic, normocephalic. Cardiovascular: S1, S2. Irregular. Respiratory system: Evidence of good air entry bilaterally. Abdomen: Soft, nontender. No masses felt. Extremities: No evidence of edema. Central nervous system: No obvious focal deficits noted. LABORATORIES: WBC is 15.55, hematocrit is 40.6, with a platelet count of 160,000. Sodium is 140, potassium 4.0, chloride is 108, bicarb 23, BUN is 26, creatinine 0.6. ASSESSMENT AND PLAN: 1. Sepsis secondary to urinary tract infection/pneumonia. Continue antibiotics. 2. Community-acquired pneumonia. Continue antibiotics. Follow up on sputum cultures. 3. Urinary tract infection secondary to Escherichia coli. Continue current antibiotic regimen. 4. Atrial fibrillation. The patient is currently on Lovenox as well as Cardizem. 5. Hypertension. Controlled. 6. History of left breast cancer. Aware. 7. History of glaucoma/legal blindness. Aware. 8. Deep vein thrombosis prophylaxis. The patient is currently on Lovenox. cc: Jose Miguel Shukla MD
[2018-10-19] MEDS: ZOSYN 3.375 GM in NS 50 ML IV SCH ×4 (02:01→18:35)
[2018-10-19] MEDS: XOPENEX NEB INH SCH ×5 (03:33→19:23)
[2018-10-19] MEDS: ATROVENT NEB INH SCH ×5 (03:33→19:23)
[2018-10-19] MEDS: LOPRESSOR PO SCH ×4 (05:52→23:20)
[2018-10-19] MEDS: LOVENOX SUBQ SCH ×2 (05:52→17:23)
[2018-10-19 06:12] LABS: BASO# 0.01 X1000 (0.0-0.2); BASO% 0.1 % (0.0-0.8); EOS# 0.04 X1000 (0.0-0.7); EOS% 0.3 % (0.0-10.0); HEMATOCRIT 38.1 % (37.0-47.0); HEMOGLOBIN 12.4 g/dL (12.0-16.0); IMM GRAN# 0.23 X1000 (0.0-0.04); IMM GRAN% 1.6 % (0.0-0.5); LYMPH# 1.13 X1000 (1.2-3.4); LYMPH% 7.9 % (20.5-51.1); MCH 30.8 PG (27-31); MCHC 32.5 g/dL (33-37); MCV 94.5 FL (81-99); MONO# 2.24 X1000 (0.11-0.59); MONO% 15.7 % (1.7-9.3); MPV 11.6 FL (7.4-10.4); NEUT# 10.58 X1000 (1.4-6.5); NEUT% 74.4 % (42.2-75.2); PLT 152 X1000 (130-400); RBC 4.03 XMIL (4.2-5.4); RDW 14.2 % (11.5-14.5); WBC 14.23 X1000 (4.8-10.8)
[2018-10-19 06:37] LABS: AGAP 11; ALB/GLOB RATIO 1.7; ALBUMIN 3.5 g/dL (3.5-5.0); ALKALINE PHOSPHATASE 59 U/L (32-104); BUN 25 mg/dL (8-22); CALCIUM 8.9 mg/dL (8.8-10.2); CHLORIDE 109 mmol/L (98-107); COSMO 293; CREATININE 0.5 mg/dL (0.5-0.9); ESTIMATED GFR > 60; GLUCOSE 162 mg/dL (70-104); GOT 65 U/L (10-30); GPT 94 U/L (10-36); POTASSIUM 3.8 mmol/L (3.5-5.1); SODIUM 143 mmol/L (136-145); TCO2 23 mmol/L (25-35); TOTAL BILIRUBIN 1.21 mg/dL (0.20-1.00); TOTAL PROTEIN 5.6 g/dL (6.3-8.3)
--- NOTE | 2018-10-19 07:14 | Diag Imaging Result Doc PS360 ---
EXAM: CHEST-1 VIEW 10/19/2018 HISTORY: pneumonia TECHNIQUE: AP portable at [id number] COMMENT: There is cardiomegaly. There is bibasilar opacity particularly in the retrocardiac portion of the left lower lobe. Compared to 10/17/2018 this is slightly worse on the right. IMPRESSION: Atelectasis and/or pneumonia. Electronically signed by Kadeem Fiore 10/19/2018 7:11 AM
[2018-10-19] MEDS: ARIMIDEX PO SCH (08:35)
[2018-10-19] MEDS: COMBIGAN OPHTH SOLN RIGHT EYE SCH ×2 (08:35→23:20)
[2018-10-19] MEDS: POTASSIUM CHLORIDE 10 MEQ in 1/2 NS 1,000 ML IV SCH ×2 (08:35→09:33)
[2018-10-19] MEDS ORDERED: NS 1,000 ML IV SCH (11:15)
[2018-10-19] MEDS: HALDOL IM PRN (15:44)
[2018-10-19] MEDS: VANCOMYCIN 1.4 GM in NS 250 ML IV SCH (16:25)
[2018-10-19] MEDS ORDERED: 1/2 NS 500 ML IV ONE (16:52)
[2018-10-19] MEDS: NS 1,000 ML IV SCH (17:23)
--- NOTE | 2018-10-19 22:59 | PROGRESS NOTE ---
DATE: 10/19/2018 INTERVAL HISTORY: The patient continues to be on a diltiazem drip for control of her atrial fibrillation. Afebrile overnight. Continues to saturate well on room air, with stable respiratory status. Relatively poor p.o. intake. She mostly wants to eat peaches. Discussed with the patient the need for more adequate nutrition. Encouraged nutrition shake consumption. No other acute events overnight. No other new complaints. REVIEW OF SYSTEMS: A 12-point review of systems Negative, except as per interval history. LABS: WBC 14.2, hemoglobin 12.4, hematocrit 38.1, platelets 152. Sodium 143, potassium 3.8, bicarb 23, BUN 25, creatinine 0.5, glucose 162. IMAGING: Chest x-ray with essentially stable retrocardiac opacity. VITALS: T-max 98.6, pulse 79, respirations 23, blood pressure 154/111, O2 saturation 99% on room air. PHYSICAL EXAMINATION: General: No acute distress. Vitals: As above. HEENT: Normocephalic and atraumatic. Keeps eyes closed. Moist mucous membranes. No cervical adenopathy. Cardiovascular: Irregular, but normal rate. No murmurs noted. Pulmonary: Minimal left lower lobe crackles, largely resolved. Otherwise, clear to auscultation bilaterally. Abdomen: Soft, nontender, nondistended. Bowel sounds positive. Extremities: Peripheral pulses intact. No clubbing, cyanosis, or edema. Neurologic: Blind, which is baseline. No other cranial nerve deficits. No focal motor or sensory deficits identified. The patient is globally weak. Psychiatric: Awake, alert, oriented to person and place, but not time. Following commands well. Skin: No new rashes or lesions identified. ASSESSMENT AND PLAN: 1. Sepsis secondary to urinary tract infection and pneumonia. Patient on antibiotics with vancomycin and Zosyn. Initial blood cultures 104 for coag-negative staph, which is likely a contaminant. Repeat blood cultures no growth to date. Urine culture with Escherichia coli, pansensitive, aside from intermediate to Macrobid. The patient off oxygen. Respiratory status excellent. No fevers. Still with a slight leukocytosis, but appears to be trending down. May be able to transition to p.o. antibiotics in the near future, likely Levaquin to cover both her urinary tract infection and pneumonia. 2. Atrial fibrillation with RVR. Patient rate controlled, but she has not been able to transition to p.o. medications thus far. Cardiology following and assisting. We will continue to monitor. Stable for transfer to the [facility] when a bed is available. 3. Hypertension. Has had occasional elevations, but also some mildly low blood pressures over the last couple days. The patient was consistently high. Will likely restart her home Norvasc, but give it a day, given systolic blood pressure as low as 111. 4. Glaucoma and legal blindness, stable. Continue home medications. 5. History of left breast cancer. Aware. No need for acute intervention at this time. 6. Pulmonary hypertension. Monitor volume status. 7. Hyperglycemia. No previous diagnosis of diabetes. Hemoglobin A1c 5.9, so hyperglycemia likely a stress response. 8. Deep vein thrombosis prophylaxis. Lovenox. DISPOSITION: Transfer to [facility] when bed available. Likely, transition to p.o. antibiotics and discharge home in the next 48 to 72 hours if control of her atrial fibrillation can be maintained with p.o. antibiotics and no further issues develop. Discussed with family, and while they do not want to take patient home with hospice, currently they are interested in learning more about hospice, so we will place a palliative care consult.
[2018-10-19] MEDS: LUMIGAN 0.01% OPH SOLUTION RIGHT EYE SCH (23:20)
--- NOTE | 2018-10-19 23:45 | PROGRESS NOTE ---
DATE: 10/19/2018 SUBJECTIVE: Patient drowsy when I see her today. Staff relates that she has been somewhat like this through the day and was pretty much up all night possibly . She denies chest discomfort or dyspnea. She relates feeling tired. She is still not eating very much. OBJECTIVE: Vital Signs: Blood pressure 138/99, heart rate 88 with ECG monitor showing atrial fibrillation. Intravenous Cardizem has been discontinued. Oxygen saturation 99 to 100 percent on nasal cannula oxygen at 2 L/minute. There is no significant jugular venous distention. Mucous membranes actually appear somewhat dry. Chest is clear to auscultation anteriorly. Cardiac exam reveals an irregular rate and rhythm without appreciable murmur or gallop. Extremities are without edema. LABORATORY DATA: Includes white blood cell count of 14.23, hematocrit 38.1, hemoglobin 12.4, platelet count 152,000. Sodium 143, potassium 3.8, chloride 109, carbon dioxide 23, BUN 25, creatinine 0.5, albumin 3.5, glucose 162. IMPRESSION: 1. Atrial fibrillation. Heart rate controlled on current metoprolol. 2. Recent sepsis possibly related to urinary tract infection. 3. Patient's clinical appearance and lab data suggest intravascular volume depletion. 4. Hypertension. 5. Breast cancer. RECOMMENDATIONS: 1. Continue current metoprolol. Give half-normal saline bolus and increase IV rate to 50 mL an hour. 2. Continue anticoagulation with Lovenox as tolerated. cc: Alex Grace MD
[2018-10-20] MEDS: XOPENEX NEB INH SCH ×7 (00:29→23:37)
[2018-10-20] MEDS: ATROVENT NEB INH SCH ×7 (00:29→23:37)
[2018-10-20] MEDS: NS 1,000 ML IV SCH ×2 (02:33→13:57)
[2018-10-20] MEDS: ZOSYN 3.375 GM in NS 50 ML IV SCH ×4 (03:17→21:10)
[2018-10-20] MEDS: LOVENOX SUBQ SCH ×2 (06:12→17:40)
[2018-10-20] MEDS: LOPRESSOR PO SCH ×4 (06:12→22:38)
[2018-10-20] MEDS: COMBIGAN OPHTH SOLN RIGHT EYE SCH ×2 (09:20→21:10)
[2018-10-20] MEDS: ARIMIDEX PO SCH (09:20)
--- NOTE | 2018-10-20 14:44 | PROGRESS NOTE ---
DATE: 10/20/2018 SUBJECTIVE: The patient is resting comfortably in bed. OBJECTIVE: Vital Signs: As follows: Temperature 97.6, pulse 92, respiratory rate 18, blood pressure 134/90, oxygen saturation is 100%. HEENT: Patient is atraumatic, normocephalic. Cardiovascular: S1, S2. Respiratory: Has evidence of good air entry bilaterally. Abdomen: Soft, nontender. No masses felt. Extremities: Has edema in both lower extremities. Central Nervous System: Patient is lethargic. No obvious focal deficits noted. LABS: None. ASSESSMENT AND PLAN: 1. Sepsis secondary to UTI, as well as pneumonia. Continue antibiotics. 2. Pneumonia, community acquired. Continue current antibiotic regimen. 3. Urinary tract infection secondary to Escherichia coli. Continue current antibiotic regimen. 4. Atrial fibrillation with rapid ventricular rate. Continue anticoagulation as well as a Cardizem. 5. Hypertension. Blood pressures are controlled. 6. History of breast cancer. Aware. 7. History of legal blindness, Aware. 8. Poor oral intake. We will start patient on Clinimix. 9. DVT prophylaxis. Lovenox. 10. Disposition: Patient will be going home with home health services. We will consult Fireworks Inspector for items the patient will need following discharge. cc: Jose Miguel Shukla MD MTDD
[2018-10-20] MEDS: VANCOMYCIN 1.4 GM in NS 250 ML IV SCH (16:28)
[2018-10-20] MEDS: CLINIMIX E 4.25%-5% SOLUTION 1,000 ML IV SCH (16:28)
[2018-10-20] MEDS: LUMIGAN 0.01% OPH SOLUTION RIGHT EYE SCH (21:10)
[2018-10-20] MEDS ORDERED: BLISTEX MEDICATED BERRY LIP BALM TOP ONE (22:54)
[2018-10-21] MEDS: ZOSYN 3.375 GM in NS 50 ML IV SCH ×3 (02:16→14:33)
[2018-10-21] MEDS: ATROVENT NEB INH SCH ×6 (03:30→23:00)
[2018-10-21] MEDS: XOPENEX NEB INH SCH ×6 (03:30→23:00)
[2018-10-21 05:21] LABS: BASO# 0.01 X1000 (0.0-0.2); BASO% 0.1 % (0.0-0.8); EOS# 0.06 X1000 (0.0-0.7); EOS% 0.4 % (0.0-10.0); HEMATOCRIT 38.9 % (37.0-47.0); HEMOGLOBIN 12.7 g/dL (12.0-16.0); IMM GRAN# 0.26 X1000 (0.0-0.04); IMM GRAN% 1.6 % (0.0-0.5); LYMPH# 1.92 X1000 (1.2-3.4); LYMPH% 11.8 % (20.5-51.1); MCH 31.2 PG (27-31); MCHC 32.6 g/dL (33-37); MCV 95.6 FL (81-99); MONO# 1.61 X1000 (0.11-0.59); MONO% 9.9 % (1.7-9.3); MPV 11.7 FL (7.4-10.4); NEUT# 12.45 X1000 (1.4-6.5); NEUT% 76.2 % (42.2-75.2); PLT 152 X1000 (130-400); RBC 4.07 XMIL (4.2-5.4); RDW 14.3 % (11.5-14.5); WBC 16.31 X1000 (4.8-10.8)
[2018-10-21] MEDS: LOPRESSOR PO SCH ×2 (05:29→12:29)
[2018-10-21] MEDS: LOVENOX SUBQ SCH ×2 (05:29→18:07)
[2018-10-21 05:55] LABS: AGAP 14; ALB/GLOB RATIO 1.4; ALBUMIN 3.2 g/dL (3.5-5.0); ALKALINE PHOSPHATASE 63 U/L (32-104); BUN 25 mg/dL (8-22); CHLORIDE 110 mmol/L (98-107); COSMO 297; CREATININE 0.6 mg/dL (0.5-0.9); ESTIMATED GFR > 60; GLUCOSE 197 mg/dL (70-104); GOT 23 U/L (10-30); GPT 59 U/L (10-36); POTASSIUM 3.9 mmol/L (3.5-5.1); SODIUM 144 mmol/L (136-145); TCO2 20 mmol/L (25-35); TOTAL BILIRUBIN 1.03 mg/dL (0.20-1.00); TOTAL PROTEIN 5.5 g/dL (6.3-8.3)
[2018-10-21 06:40] LABS: BANDS 2 % (0-1); LYMPHS 10 % (21-51); MONO 10 % (1-9); SEGS 78 % (42-75)
[2018-10-21] MEDS: ARIMIDEX PO SCH (09:47)
[2018-10-21] MEDS: NS 1,000 ML IV SCH (09:47)
[2018-10-21] MEDS: CLINIMIX E 4.25%-5% SOLUTION 1,000 ML IV SCH (09:48)
[2018-10-21] MEDS: COMBIGAN OPHTH SOLN RIGHT EYE SCH ×2 (09:49→21:36)
--- NOTE | 2018-10-21 14:11 | PROGRESS NOTE ---
DATE: 10/21/2018 SUBJECTIVE: The patient resting in bed. OBJECTIVE: Vital signs are as follows: Temperature 97.6, pulse 93, respirations 20, blood pressure is 138/91, oxygen saturation is 99%. HEENT: Atraumatic, normocephalic. Cardiovascular: S1, S2. Respiratory system has evidence of good air entry bilaterally. Abdomen soft, nontender. No masses felt. Extremities: No evidence of edema. Central Nervous System: No obvious focal deficits noted. LABORATORY DATA: WBC 16.31, hematocrit is 38.9 with a platelet count of 152,000. Sodium is 144, potassium 3.9, chloride is 110, bicarb 20. BUN is 25, creatinine 0.6. ASSESSMENT AND PLAN: 1. Sepsis secondary to urinary tract infection as well as pneumonia. Urinary tract infection secondary to Escherichia coli. Will continue patient on antibiotics. 2. Atrial fibrillation. Continue anticoagulation as well as Cardizem. 3. Hypertension, continue current antihypertensive regimen. 4. History of breast cancer, aware. 5. History of legal blindness as well as glaucoma, aware. 6. Poor oral intake. The patient is currently on Clinimix. 7. Deep vein thrombosis prophylaxis; Lovenox. DISPOSITION: The patient's family is leaning towards the patient being discharged with hospice services; however, they have not made a final decision yet. They are also thinking about a formal DNR at this time as well. cc: Jose Miguel Shukla MD
[2018-10-21] MEDS ORDERED: ZYVOX 600 MG/D5W 600 MG/300 ML IVPB IV SCH (14:45)
[2018-10-21] MEDS: MYCAMINE 100 MG in NS 100 ML IV SCH (15:39)
[2018-10-21] MEDS ORDERED: 1/2 NS 500 ML IV ONE ×2 (15:39→16:00)
[2018-10-21] MEDS: MERREM 1 GM in NS 50 ML IV SCH ×3 (15:41→22:56)
--- NOTE | 2018-10-21 15:56 | PROGRESS NOTE ---
DATE: 10/21/2018 SUBJECTIVE: Patient continues somewhat drowsy, but arouses to verbal. She answers questions with short responses. She does not appear to be any distress. Staff has observed what appears to be aspiration and she is now n.p.o. OBJECTIVE: Vital Signs: Blood pressure 138/91, heart rate 93, oxygen saturation 99% on nasal cannula oxygen. There is no significant jugular venous distention. Chest: Auscultation of the chest reveals coarse breath sounds bilaterally. Cardiac: Reveals a regular rate and rhythm without appreciable murmur or gallop. There is no evidence of peripheral edema. LABORATORY DATA: Demonstrates white blood cell count 16.31, hematocrit 38.9, hemoglobin 12.7, platelet count 152,000. Sodium 144, potassium 3.9, chloride 110, carbon dioxide 28, BUN 25, creatinine 0.6. Glucose 197. IMPRESSION: 1. Atrial fibrillation. Rate controlled. 2. Recent sepsis possibly related to urinary tract infection. 3. Apparent aspiration. 4. Patient's clinical appearance continues to suggest intravascular volume depletion and labs suggest free water deficit. 5. Hypertension. 6. Breast cancer. RECOMMENDATIONS: 1. Given n.p.o. status, we will transition to parenteral means of controlling heart rate. Will utilize metoprolol intravenously as needed. Low-dose diltiazem parenterally to be initiated. 2. Continue intravenous hydration and adjust IV fluids to help with free water deficit. 3. Check arterial blood gas. cc: Alex Grace MD
[2018-10-21] MEDS ORDERED: LOPRESSOR IV PRN (15:59)
--- NOTE | 2018-10-21 16:00 | INFECTIOUS DISEASE CONSULT REP ---
DATE: 10/21/2018 CONCLUSION: The patient has an E coli urinary tract infection. She also appears to be aspirating and I think this could be the cause of an aspiration pneumonia. The patient has oral candidiasis and this may have spread down to her esophagus as well. The patient has 1 of 2 blood cultures positive for coagulase-negative Staphylococcus. This is a contaminant and does not require antibiotic treatment. RECOMMENDATIONS: I have made the patient NPO. I have discontinued Zosyn and vancomycin, and put the patient on meropenem and Zyvox. Also, I have added micafungin. DISCUSSION: The patient is unable provide a history. The history was taken from talking to the family and review of the data in the computer. She initially was admitted with back pain, dysuria, foul smelling urine, nausea, and some confusion. In the hospital here, she has become somewhat lethargic. She appears to be aspirating. The patient is noncommunicative currently. Her studies thus far show a CBC with a white count that is up to 16,310, hemoglobin 12.7, and platelet count 152,000. Creatinine is 0.6. GFR is greater than 60. The ALT is 59. The rest the liver function tests are normal. The urine culture grew out E coli. Chest x-ray shows worsening of the bibasilar opacities. The patient has 1 of 2 blood cultures growing a coagulase-negative Staph. PAST MEDICAL HISTORY: Positive for atrial fibrillation, hypertension, left breast cancer for which patient is on chemotherapy, glaucoma, bilateral knee arthritis. The patient is unable to walk because of the arthritis. SURGICAL HISTORY: Listed as none. SOCIAL HISTORY: The patient does not smoke cigarettes or drink alcoholic beverages. She lives with her family. She is chair-bound and then more recently bed-bound. FAMILY HISTORY: Positive for hypertension, stroke, diabetes mellitus, and heart attack. ALLERGIES: The patient has no known drug allergies. HOME MEDICATIONS: Norvasc, Pepcid, lisinopril/hydrochlorothiazide, Toprol, Aleve, and aspirin. REVIEW OF SYSTEMS: Unable to be obtained from the patient. PHYSICAL EXAMINATION: Vital Signs: Temperature 97.6 degrees, pulse 93, respirations 25, blood pressure 138/91. The patient is 5 feet 7 inches tall and weighs 176 pounds. General: This is an obese, elderly female who appears to be in acute distress. Head, Eyes, Ears, Nose, Throat: The patient had gargling sensation in her throat and a few times spit up some fluid. There is no drainage from the nose or ears. Neck: No stiffness. Lungs: Bilateral rhonchi. Cardiovascular: Heart rate is irregular. Abdomen: Soft and does not appear to be tender. Neurologic: The patient is somewhat delirious. She is having secretions that she seems to cough up. She does not follow request to move her extremities. She does not talk at this time. Integument: No rash noted. Thank you for the consult. cc: Milan Villegas MD
[2018-10-21 16:38] LABS: BE -1.8 mmoll (-3.0-3.0); BLOOD TYPE ARTERIAL; HCO3-(ACT) 23.5 mmoll (20.0-26.0); METHB 1.3 % (0.0-1.5); PCO2(98.6) 33 mmHg (35-45); PO2(98.6) 97 mmHg (60-100); SAMPLE BLOOD; SAO2 98.7 % (95.0-100.0); THB 12.2 g/dL (11.5-17.4); pH(98.6) 7.43 (7.35-7.45)
[2018-10-21 16:39] LABS: ALLEN TEST YES; MODALITY CANNULA; O2(CT) 16.6 mL/dL (15.0-23.0); O2HB 95.9 % (95.0-99.0)
[2018-10-21] MEDS: 1/2 NS 1,000 ML IV SCH (18:13)
[2018-10-21] MEDS: LUMIGAN 0.01% OPH SOLUTION RIGHT EYE SCH (21:36)
[2018-10-21] MEDS: ZYVOX 600 MG/D5W 600 MG/300 ML IVPB IV SCH (21:36)
[2018-10-22] MEDS: 1/2 NS 1,000 ML IV SCH ×3 (00:58→16:17)
[2018-10-22] MEDS ORDERED: MORPHINE IV ONE (01:09)
[2018-10-22] MEDS: ATROVENT NEB INH SCH ×6 (02:54→23:50)
[2018-10-22] MEDS: XOPENEX NEB INH SCH ×6 (02:55→23:50)
[2018-10-22] MEDS: CLINIMIX E 4.25%-5% SOLUTION 1,000 ML IV SCH (06:08)
[2018-10-22] MEDS: MERREM 1 GM in NS 50 ML IV SCH ×3 (06:08→22:17)
--- NOTE | 2018-10-22 07:33 | INFECTIOUS DISEASE PROGRESS NO ---
DATE: 10/22/2018 SUBJECTIVE: The patient currently is being treated for an aspiration pneumonia and an Escherichia coli urinary tract infection. The patient also has oral candidiasis, which may have spread down to her esophagus. The patient had 1 of 2 blood cultures positive for coagulase-negative Staph. The positive blood culture is a contaminant and does not merit antibiotic treatment. MEDICATIONS: Yesterday, I started the patient on Zyvox, micafungin, and meropenem. OBJECTIVE: Vital Signs: Temperature is 97.9 degrees, pulse 77, respirations 19, blood pressure 144/81. The patient today looks much better. She is not coughing all the time. She is more awake, and she is talking. Head/eyes/ears/nose/throat: She can hear my spoken words and see near objects. She does have some white patches on her tongue. Neck: No meningismus. Lungs: Clear to auscultation. Cardiovascular: Heart rate is irregular. Abdomen: Soft and nontender. Neurologic: Patient is more alert than she was yesterday. She can move her extremities. There is no tremor. Integument: I did not notice any rash. LAB AND X-RAY: There is no lab and x-ray for today at least for now. ASSESSMENT AND PLAN: 1. Patient has an Escherichia coli urinary tract infection. 2. Aspiration pneumonia. 3. Oral and possible esophageal candidiasis. As mentioned above, the 1/2 blood cultures positive for coagulase-negative staphylococcus is a contaminant and treatment is not indicated. My plan, now, is to continue with the patient's current antibiotic therapy. Also, yesterday, I put the patient on Robitussin DM, with the hope of cutting down on her coughing. I plan to continue with the Zyvox, micafungin, and meropenem. Also, I am going to keep the patient nothing by mouth for now because she seems so much clearer since she has stopped taking anything by mouth. COMORBIDITIES: She is elderly. She is obese. To me, it appears that she aspirates. She has breast cancer and knee arthritis. The patient has atrial fibrillation also. cc: Milan Villegas MD
[2018-10-22 08:07] LABS: HEMATOCRIT 37.4 % (37.0-47.0); MCH 31.2 PG (27-31); MCHC 32.1 g/dL (33-37); MCV 97.1 FL (81-99); MPV 11.2 FL (7.4-10.4); RBC 3.85 XMIL (4.2-5.4); RDW 14.4 % (11.5-14.5); WBC 15.26 X1000 (4.8-10.8)
[2018-10-22] MEDS: LOVENOX SUBQ SCH ×2 (08:31→20:32)
[2018-10-22] MEDS: ZYVOX 600 MG/D5W 600 MG/300 ML IVPB IV SCH ×2 (08:31→20:31)
[2018-10-22] MEDS: ARIMIDEX PO SCH (08:31)
[2018-10-22] MEDS: COMBIGAN OPHTH SOLN RIGHT EYE SCH ×2 (08:32→20:31)
[2018-10-22 08:37] LABS: AGAP 13; ALB/GLOB RATIO 1.4; ALKALINE PHOSPHATASE 58 U/L (32-104); BUN 20 mg/dL (8-22); CALCIUM 8.4 mg/dL (8.8-10.2); CHLORIDE 108 mmol/L (98-107); COSMO 288; CREATININE 0.5 mg/dL (0.5-0.9); ESTIMATED GFR > 60; GLUCOSE 143 mg/dL (70-104); GOT 18 U/L (10-30); GPT 39 U/L (10-36); POTASSIUM 3.8 mmol/L (3.5-5.1); SODIUM 142 mmol/L (136-145); TCO2 21 mmol/L (25-35); TOTAL BILIRUBIN 0.85 mg/dL (0.20-1.00); TOTAL PROTEIN 5.1 g/dL (6.3-8.3)
--- NOTE | 2018-10-22 12:12 | Diag Imaging Result Doc PS360 ---
CHEST-PORTABLE - 10/22/2018 INDICATION: aspiration COMPARISON: 10/19/2018 FINDINGS: Stable right PICC line in good position. Stable cardiomegaly. Stable central pulmonary edema. There has been increase in size of the bilateral pleural effusions.. IMPRESSION: Increase in size of the bilateral pleural effusions. Cardiomegaly and pulmonary edema. Electronically signed by Ar Serrano 10/22/2018 12:10 PM
[2018-10-22] MEDS: CARDIZEM 100 MG/NS 100 MG/100 ML IVPB IV SCH (13:14)
[2018-10-22] MEDS: MYCAMINE 100 MG in NS 100 ML IV SCH (14:53)
[2018-10-22] MEDS ORDERED: LASIX IV ONE (15:53)
--- NOTE | 2018-10-22 16:44 | PROGRESS NOTE ---
DATE: 10/22/2018 SUBJECTIVE: Patient has been lethargic throughout the day today. She does arouse to verbal and answers questions. She reports feeling weak. There has been no chest pain or shortness of breath. OBJECTIVE: Vital signs: Blood pressure 149/78, heart rate 98, oxygen saturation 99% on nasal cannula oxygen. Neck: Jugular venous distention cannot be appreciated. Chest: Auscultation of the chest reveals diminished breath sounds at bases bilaterally. Cardiac: Reveals an irregular rate and rhythm without appreciable murmur or gallop. Extremities: Demonstrate trace edema. LABORATORY DATA: Includes a white blood cell count 15.26, hematocrit 37.4, hemoglobin 12.0, platelet count 135,000. Sodium 142, potassium 3.8, chloride 108, carbon dioxide 21, BUN 20, creatinine 0.5, glucose 143, albumin 3.0. Chest x-ray demonstrates bilateral pleural effusions. IMPRESSIONS: 1. Atrial fibrillation. Rate controlled on current metoprolol. 2. Recent suspected sepsis. 3. Bilateral pleural effusions. 4. Hypertension. 5. Breast cancer. RECOMMENDATIONS: 1. Continue current metoprolol. 2. Continue anticoagulation with Lovenox as tolerated. 3. Decrease IV fluids. Dannielle. cc: Alex Grace MD
--- NOTE | 2018-10-22 18:36 | PROGRESS NOTE ---
DATE: 10/22/2018 SUBJECTIVE: The patient is somewhat lethargic. She received IV morphine at around 1:30 this morning. No acute events noted overnight. OBJECTIVE: Vital Signs: Temperature 97.2 degrees, blood pressure 149/78, heart rate 98, respirations 18, O2 saturation 99% on 2 L nasal cannula. General: This is a chronically ill- appearing elderly female lying in bed in no acute distress. Heart: S1, S2 normal. Lungs: Coarse breath sounds bilaterally. Abdomen: Positive bowel sounds. Soft, nontender, nondistended. Extremities: 2+ edema in the right lower extremity, 1+ in the left lower extremity. Neuro: The patient is lethargic but will awaken when her name is called. LABS: White blood cell count 15, hemoglobin 12, hematocrit 37, platelets 135,000. Sodium 142, potassium 3.8, chloride 108, CO2 21, BUN 20, creatinine 0.5, glucose 143, calcium 8.4. ASSESSMENT AND PLAN: 1. Aspiration pneumonia. Continue with antibiotic therapy as directed by Dr. Villegas. 2. Urinary tract infection secondary to Escherichia coli. Continue with antibiotic therapy. 3. Atrial fibrillation. Management as per the general education instructor. 4. History of breast cancer. Aware. 5. Oral candidiasis. The patient is on micafungin. 6. Gastrointestinal prophylaxis. Will start the patient on IV Protonix. 7. Deep vein thrombosis prophylaxis. The patient is on full-dose Lovenox. cc: Dori Goldstein MD
[2018-10-22] MEDS: LUMIGAN 0.01% OPH SOLUTION RIGHT EYE SCH (20:32)
[2018-10-23] MEDS: CLINIMIX E 4.25%-5% SOLUTION 1,000 ML IV SCH ×2 (02:25→21:31)
[2018-10-23] MEDS: XOPENEX NEB INH SCH ×6 (03:25→23:27)
[2018-10-23] MEDS: ATROVENT NEB INH SCH ×6 (03:30→23:27)
[2018-10-23] MEDS: MERREM 1 GM in NS 50 ML IV SCH ×3 (05:55→21:50)
[2018-10-23 06:19] LABS: AGAP 13; BUN 15 mg/dL (8-22); CALCIUM 8.3 mg/dL (8.8-10.2); CHLORIDE 99 mmol/L (98-107); COSMO 281; CREATININE 0.4 mg/dL (0.5-0.9); ESTIMATED GFR > 60; GLUCOSE 150 mg/dL (70-104); POTASSIUM 3.2 mmol/L (3.5-5.1); SODIUM 139 mmol/L (136-145); TCO2 27 mmol/L (25-35)
[2018-10-23 06:20] LABS: EOS# 0.17 X1000 (0.0-0.7); EOS% 1.2 % (0.0-10.0); HEMATOCRIT 37.3 % (37.0-47.0); HEMOGLOBIN 12.4 g/dL (12.0-16.0); LYMPH# 1.05 X1000 (1.2-3.4); LYMPH% 7.4 % (20.5-51.1); MCH 31.5 PG (27-31); MCHC 33.2 g/dL (33-37); MCV 94.7 FL (81-99); MONO# 3.57 X1000 (0.11-0.59); MONO% 25.1 % (1.7-9.3); MPV 11.4 FL (7.4-10.4); PLT 139 X1000 (130-400); RBC 3.94 XMIL (4.2-5.4); RDW 14.4 % (11.5-14.5); WBC 14.21 X1000 (4.8-10.8)
--- NOTE | 2018-10-23 07:05 | INFECTIOUS DISEASE PROGRESS NO ---
DATE: 10/23/2018 PRESENT ILLNESS: The patient has aspiration pneumonia, Escherichia coli urinary tract infection, and oral candidiasis, which may have spread to the esophagus. Also, the patient yesterday tried to take a minimal amount of water through a straw and the nurse report reported to me that the patient appeared to choke on it and started coughing. Therefore, I think the patient does aspirate and will not be able to take medication or food by her mouth. MEDICATIONS: The patient is on Zyvox, micafungin, and meropenem now, and this will be considered day 1 of treatment. PHYSICAL EXAMINATION: Vital Signs: Temperature is 97.6 degrees, pulse 84, respirations 17, blood pressure 134/87. General: This is a lethargic, chronically ill-appearing elderly female. Currently, she is in no acute distress. Head, Eyes, Ears, Nose, and Throat: She appeared to be able to see near objects. She had decreased hearing. She does not have any white patches on her tongue. Neck: No stiffness. Lungs: Clear to auscultation. Cardiovascular: Heart rate is irregular. Abdomen: Soft and nontender. Neurologic: The patient is lethargic. She did move her arms and legs to request. There was no tremor. LABORATORY AND X-RAY: Chest x-ray shows pulmonary edema with bilateral pleural effusions. Creatinine is 0.4, GFR is greater than 60. CBC shows a white count of 14,210, hemoglobin 12.4, and platelet count 139,000. ASSESSMENT AND PLAN: Patient has Escherichia coli urinary tract infection, aspiration pneumonia, and oral and possible esophageal candidiasis. My plan is to continue the patient's current medications, namely Zyvox, meropenem and micafungin. Also, I have continued to keep the patient nothing by mouth because she appears to choke and aspirate anything given to her by mouth. COMORBIDITIES: She is elderly and obese. She aspirates. She has breast cancer and knee arthritis. She also is in atrial fibrillation. cc: Milan Villegas MD
--- NOTE | 2018-10-23 07:33 | Diag Imaging Result Doc PS360 ---
EXAM: CHEST-PORTABLE HISTORY: pulmonary edema/pleural effusions TECHNIQUE: Portable chest single view COMPARISON: 10/22/2018 FINDINGS: There are moderate-sized bilateral pleural effusions with basilar atelectasis. There may be underlying pneumonia as well. The heart remains enlarged. Decreased pulmonary edema. No change in the right-sided PICC line. IMPRESSION: Mild interval improvement. Electronically signed by Wilder Pal 10/23/2018 7:30 AM
[2018-10-23] MEDS ORDERED: MAGNESIUM SULFATE 2 GM/S.W.I. 2 GM/50 ML IVPB IV ONE (07:56)
[2018-10-23] MEDS ORDERED: LASIX IV ONE ×2 (08:00→17:00)
[2018-10-23] MEDS ORDERED: POTASSIUM CHLORIDE 60 MEQ in NS 500 ML IV ONE (08:00)
[2018-10-23] MEDS: ZYVOX 600 MG/D5W 600 MG/300 ML IVPB IV SCH ×2 (08:22→21:50)
[2018-10-23] MEDS: LOVENOX SUBQ SCH ×2 (08:22→21:31)
[2018-10-23] MEDS: ARIMIDEX PO SCH (08:22)
[2018-10-23] MEDS: COMBIGAN OPHTH SOLN RIGHT EYE SCH ×2 (08:22→21:31)
--- NOTE | 2018-10-23 11:43 | PROGRESS NOTE ---
DATE: 10/23/2018 SUBJECTIVE: Patient more awake today. She relates not feeling well, but voices no specific complaint. She reports feeling weak. OBJECTIVE: Vital Signs: Blood pressure 143/81, heart rate 92, oxygen saturation 100% on nasal cannula oxygen. Neck: Jugular venous distention cannot be appreciated. Lungs: Auscultation of the chest reveals diminished breath sounds at bases bilaterally. Cardiac: Reveals an irregular rate and rhythm without appreciable murmur or gallop. Extremities: Demonstrate trace edema. LABORATORY DATA: Includes white blood cell count 14.21, hematocrit 37.3, hemoglobin 12.4, platelet count 139,000. Sodium 139, potassium 3.2, chloride 99, carbon dioxide 27, BUN 15, creatinine 0.4, glucose 150. Chest x-ray reviewed and demonstrates significant bilateral pleural effusions. IMPRESSION: 1. Atrial fibrillation. Rate controlled on current regimen. 2. Recent suspected sepsis. 3. Bilateral pleural effusions/volume overload. This seems to be improving with diuresis. 4. Hypertension. 5. Breast cancer. RECOMMENDATIONS: 1. Continue metoprolol. 2. Continue anticoagulation with Lovenox as tolerated. 3. Maintain diuresis. cc: Alex Grace MD
[2018-10-23] MEDS: CARDIZEM 100 MG/NS 100 MG/100 ML IVPB IV SCH (11:57)
[2018-10-23] MEDS: MYCAMINE 100 MG in NS 100 ML IV SCH (15:25)
[2018-10-23] MEDS: 1/2 NS 1,000 ML IV SCH (15:26)
--- NOTE | 2018-10-23 20:26 | PROGRESS NOTE ---
DATE: 10/23/2018 SUBJECTIVE: The patient is more awake and alert today. No acute events noted overnight. OBJECTIVE: Vital Signs: Temperature 98.2, blood pressure 126/87, heart rate 74, respirations 16, O2 sats 99% on 3 L nasal cannula. Urine output 5.2 L. General: This is a chronically ill- appearing elderly female lying in bed in no acute distress. HEENT: Head normocephalic, atraumatic. Heart: S1, S2 normal. Lungs: Coarse breath sounds bilaterally. Abdomen: Positive bowel sounds. Soft, nontender, nondistended. Extremities: 1+ edema bilaterally. Neurologic: The patient is awake and alert. LABS: White blood cell count 14, hemoglobin 12, hematocrit 37, platelets 139,000. Sodium 139, potassium 3.2, chloride 99, CO2 27, BUN 15, creatinine 0.4, glucose 150, magnesium 1.3, calcium 8.3. ProBNP 5999. ASSESSMENT AND PLAN: 1. Aspiration pneumonia. Continue with antibiotic therapy plus bronchodilator therapy and supplemental oxygen. 2. Volume overload with CHF. Management as per the supervisor dairy sanitation. 3. Urinary tract infection secondary to E coli. Continue with antibiotic therapy as directed by Dr. Villegas. 4. Oral candidiasis. The patient is on micafungin. 5. Atrial fibrillation. The patient is rate controlled. Management as per the supervisor dairy sanitation. 6. Severe protein calorie malnutrition. The patient he is currently on Clinimix. Once the patient is stronger, we may need to do a swallow evaluation to determine whether the patient can be started on some feeding. 7. GI prophylaxis. Continue on IV Protonix. 8. History of breast cancer. Aware. 9. DVT prophylaxis. The patient is on full-dose Lovenox. cc: Dori Goldstein MD
[2018-10-23] MEDS: LUMIGAN 0.01% OPH SOLUTION RIGHT EYE SCH (21:30)
[2018-10-23] MEDS: TYLENOL PR PRN (23:16)
[2018-10-24] MEDS: ATROVENT NEB INH SCH ×6 (03:25→23:30)
[2018-10-24] MEDS: XOPENEX NEB INH SCH ×6 (03:26→23:31)
[2018-10-24 05:42] LABS: AGAP 9; BUN 14 mg/dL (8-22); CALCIUM 8.2 mg/dL (8.8-10.2); CHLORIDE 93 mmol/L (98-107); COSMO 272; CREATININE 0.5 mg/dL (0.5-0.9); ESTIMATED GFR > 60; GLUCOSE 154 mg/dL (70-104); MAGNESIUM 1.6 mg/dL (1.5-2.7); PHOSPHORUS 2.4 mg/dL (2.7-4.5); POTASSIUM 3.5 mmol/L (3.5-5.1); SODIUM 134 mmol/L (136-145); TCO2 32 mmol/L (25-35)
[2018-10-24 05:45] LABS: BASO# 0.01 X1000 (0.0-0.2); BASO% 0.1 % (0.0-0.8); EOS# 0.12 X1000 (0.0-0.7); HEMATOCRIT 36.2 % (37.0-47.0); HEMOGLOBIN 12.3 g/dL (12.0-16.0); IMM GRAN# 0.16 X1000 (0.0-0.04); IMM GRAN% 1.3 % (0.0-0.5); LYMPH# 2.25 X1000 (1.2-3.4); LYMPH% 18.7 % (20.5-51.1); MCH 31.7 PG (27-31); MCV 93.3 FL (81-99); MONO# 2.59 X1000 (0.11-0.59); MONO% 21.5 % (1.7-9.3); NEUT# 6.93 X1000 (1.4-6.5); NEUT% 57.4 % (42.2-75.2); PLT 128 X1000 (130-400); RBC 3.88 XMIL (4.2-5.4); RDW 14.2 % (11.5-14.5); WBC 12.06 X1000 (4.8-10.8)
[2018-10-24] MEDS: MERREM 1 GM in NS 50 ML IV SCH ×3 (05:45→22:02)
--- NOTE | 2018-10-24 06:58 | INFECTIOUS DISEASE PROGRESS NO ---
DATE: 10/24/2018 SUBJECTIVE: The patient is being treated for presumed aspiration pneumonia. The patient's procalcitonin came back yesterday, and it was less than 0.10, which means that it is very unlikely that she does have pneumonia; although, she could have another infection. The patient also has an E coli urinary tract infection and oral candidiasis, which may have spread to the esophagus. MEDICATIONS: The patient has been on the combination of Zyvox, meropenem, and micafungin for 3 days now. PHYSICAL EXAMINATION: Vital Signs: Temperature is 97.9 degrees, pulse 83, respirations 20, blood pressure 118/71. General: This is a lethargic, chronically ill-appearing elderly female. She is in no acute distress. About the only thing she said was that she wanted to go home. Head/eyes/ears/nose/throat: She is able to hear my spoken words, and appears that she can see near objects. There is no drainage from her nose or ears, and the white patches on her tongue are clearing up. Neck: No stiffness. Lungs: Clear to auscultation. Cardiovascular: Heart rate is irregular. Abdomen: Soft and nontender. Extremities: The patient has a PICC in her right arm. The site is not erythematous or draining. Neurologic: Patient is lethargic. She did talk with me, and she did follow request to move her extremities. LAB AND X-RAY: Chest x-ray shows decrease in pulmonary edema. The CBC shows a white count now down to 12,060, hemoglobin is 12.3, and platelet count is a 128,000. Creatinine is 0.5. GFR is greater than 60. As mentioned above, Procalcitonin is less than 0.10. Chest x-ray shows decreased pulmonary edema. ASSESSMENT AND PLAN: The patient may have aspiration pneumonia, although the very low procalcitonin level is against this diagnosis. She also has an Escherichia coli urinary tract infection, and she had oral candidiasis with possible extension to the esophagus. The patient is remaining afebrile and her white count is coming up, therefore, I am going to continue with her current medications, namely Zyvox, meropenem, and micafungin. Also, I plan to keep the patient NPO because she chokes any time she tries to take something by mouth. The patient yesterday was made a DNR level 1. COMORBIDITIES: The patient is elderly, and she is obese. She aspirates. She has breast cancer and knee arthritis. She is in atrial fibrillation. cc: Milan Villegas MD
[2018-10-24] MEDS ORDERED: POTASSIUM CHLORIDE 40 MEQ/SWI 40 MEQ/100 ML IVPB IV ONE (07:27)
[2018-10-24] MEDS ORDERED: MAGNESIUM SULFATE 2 GM/S.W.I. 2 GM/50 ML IVPB IV ONE (07:27)
--- NOTE | 2018-10-24 08:21 | Diag Imaging Result Doc PS360 ---
EXAM: CHEST-1 VIEW 10/24/2018 HISTORY: pneumonia TECHNIQUE: AP portable at 0559 COMMENT: There is cardiomegaly. There are bilateral pleural effusions. There is bibasilar atelectasis versus pneumonia, plus minus pulmonary edema. Compared to 10/23/2018 this has not changed appreciably. Compared to 2018 there appears to be somewhat less pleural fluid on the left. IMPRESSION: Cardiomegaly with pulmonary edema and/or pneumonia and bibasilar atelectasis and pleural effusions. Electronically signed by Kadeem Fiore 10/24/2018 8:19 AM
[2018-10-24] MEDS: ZYVOX 600 MG/D5W 600 MG/300 ML IVPB IV SCH ×2 (08:32→20:51)
[2018-10-24] MEDS: 1/2 NS 1,000 ML IV SCH (08:33)
[2018-10-24] MEDS: CARDIZEM 100 MG/NS 100 MG/100 ML IVPB IV SCH ×2 (08:33→22:02)
[2018-10-24] MEDS: COMBIGAN OPHTH SOLN RIGHT EYE SCH ×2 (08:33→20:51)
[2018-10-24] MEDS: LOVENOX SUBQ SCH ×2 (08:41→20:51)
[2018-10-24] MEDS: ARIMIDEX PO SCH (08:41)
--- NOTE | 2018-10-24 09:35 | Diag Imaging Result Doc PS360 ---
EXAM: FLAT/UPRIGHT ABD/1 VIEW CHEST 10/24/2018 HISTORY: Constipation TECHNIQUE: Four views COMMENT: There is a large amount of stool in the rectum. The bowel gas pattern is otherwise unremarkable. There are bilateral pleural effusions and there is cardiomegaly which was also present on earlier at 0559. IMPRESSION: Stable chest. Fecal impaction. Electronically signed by Kadeem Fiore 10/24/2018 9:32 AM
[2018-10-24] MEDS ORDERED: DULCOLAX PR ONE (09:39)
[2018-10-24] MEDS: MYCAMINE 100 MG in NS 100 ML IV SCH (14:10)
--- NOTE | 2018-10-24 17:26 | PROGRESS NOTE ---
DATE: 10/24/2018 SUBJECTIVE: The patient is resting comfortably in bed. OBJECTIVE: Vital Signs: Temperature 98.2 degrees, blood pressure 129/95, heart rate 83, respirations 22, O2 saturation is 94% on 3 L nasal cannula. General: This is a chronically ill- appearing, elderly female, lying in bed, in no acute distress. Heart: S1, S2. Normal. Lungs: Equal air entry bilaterally. No wheezing. No rales. Abdomen: Positive bowel sounds. Soft, nontender, nondistended. Extremities: There is 1+ edema. No cyanosis. No calf tenderness. Neurologic: The patient is awake and alert. LABS: White blood cell count 12, hemoglobin 12, hematocrit 36, platelets 128,000. Sodium 134, potassium 3.5, chloride 93, CO2 32, BUN 14, creatinine 0.5, glucose 154, magnesium 1.6, phosphorus 2.4. ASSESSMENT AND PLAN: 1. Volume overload with congestive heart failure. Management as per the framing carpenter. 2. Oral candidiasis. Continue on micafungin. 3. Urinary tract infection secondary to Escherichia coli. Continue on the current antibiotic regimen as directed by Dr. Villegas. 4. Severe protein calorie malnutrition. Will request a swallow evaluation today. 5. Constipation. The abdominal x-ray shows fecal impaction. Will ask the nursing staff to disimpact the patient and will also give the patient a suppository. We will start the patient on Colace if she passes her swallow evaluation. 6. Atrial fibrillation. The patient is rate controlled. 7. History of breast cancer. Aware. 8. Gastrointestinal prophylaxis. Continue on IV Protonix. 9. Deep vein thrombosis prophylaxis. The patient is on full-dose Lovenox. cc: Dori Goldstein MD
[2018-10-24] MEDS: CLINIMIX E 4.25%-5% SOLUTION 1,000 ML IV SCH (17:53)
--- NOTE | 2018-10-24 20:25 | PROGRESS NOTE ---
DATE: 10/24/2018 CARDIOLOGY FOLLOWUP NOTE: SUBJECTIVE: Patient awake and responsive. She relates some feeling of weakness, but no specific complaints. There has been no chest pain or shortness of breath. OBJECTIVE: Vital Signs: Blood pressure 129/83, heart rate 82 and regular, oxygen saturation 97% on nasal cannula oxygen at 3 L/minute. Neck: Jugular venous distention cannot be appreciated. Chest: Auscultation of the chest reveals diminished breath sounds at bases bilaterally. Cardiac: Reveals a regular rate and rhythm without appreciable murmur or gallop. There is no evidence of peripheral edema. LABORATORY DATA: Includes a white blood cell count of 12.06, hematocrit 36.2, hemoglobin 12.3, platelet count 128,000. Sodium 134, potassium 3.5, chloride 93, carbon dioxide 32, BUN 14 creatinine 0.5. Glucose 154. IMPRESSION: 1. Atrial fibrillation. Rate controlled on current regimen, which consists of IV Cardizem and as needed IV metoprolol. Patient currently on IV regimen pending resumption of oral intake. 2. Bilateral pleural effusions/volume overload. The patient has diuresed fairly vigorously for the last 48 hours and this seems to be improving. 3. Hypertension. 4. Breast cancer. 5. Recent suspected sepsis. RECOMMENDATIONS: 1. Continue current IV Cardizem and as needed IV metoprolol for rate control. Once patient is able to take oral medications again, with transition back to previous oral regimen. 2. Continue anticoagulation. Lovenox as tolerated. 3. Slow diuresis. Will start Lasix 20 mg IV q.a.m. for now. cc: Alex Grace MD
[2018-10-24] MEDS: LUMIGAN 0.01% OPH SOLUTION RIGHT EYE SCH (20:51)
[2018-10-25] MEDS: XOPENEX NEB INH SCH ×6 (03:00→23:50)
[2018-10-25] MEDS: ATROVENT NEB INH SCH ×6 (03:00→23:50)
[2018-10-25 05:28] LABS: EOS# 0.09 X1000 (0.0-0.7); EOS% 0.9 % (0.0-10.0); RDW 14.7 % (11.5-14.5)
[2018-10-25] MEDS: 1/2 NS 1,000 ML IV SCH (05:30)
[2018-10-25] MEDS: MERREM 1 GM in NS 50 ML IV SCH ×2 (05:47→14:34)
[2018-10-25 05:58] LABS: AGAP 10; BUN 14 mg/dL (8-22); CALCIUM 8.2 mg/dL (8.8-10.2); CHLORIDE 94 mmol/L (98-107); COSMO 267; CREATININE 0.4 mg/dL (0.5-0.9); ESTIMATED GFR > 60; GLUCOSE 136 mg/dL (70-104); MAGNESIUM 1.7 mg/dL (1.5-2.7); PHOSPHORUS 2.6 mg/dL (2.7-4.5); SODIUM 132 mmol/L (136-145); TCO2 28 mmol/L (25-35)
[2018-10-25 06:14] LABS: HEMOGLOBIN 11.9 g/dL (12.0-16.0); IMM GRAN# 0.09 X1000 (0.0-0.04); IMM GRAN% 0.9 % (0.0-0.5); LYMPH# 2.07 X1000 (1.2-3.4); LYMPH% 19.8 % (20.5-51.1); MCH 31.7 PG (27-31); MCV 93.3 FL (81-99); MONO# 2.61 X1000 (0.11-0.59); MONO% 24.9 % (1.7-9.3); MPV 10.8 FL (7.4-10.4); NEUT# 5.62 X1000 (1.4-6.5); NEUT% 53.5 % (42.2-75.2); PLT 129 X1000 (130-400); RBC 3.75 XMIL (4.2-5.4); WBC 10.48 X1000 (4.8-10.8)
--- NOTE | 2018-10-25 08:27 | INFECTIOUS DISEASE PROGRESS NO ---
DATE: 10/25/2018 PRESENT ILLNESS: The patient is being treated for presumed aspiration pneumonia, even though his procalcitonin level came back as less than 0.10. The patient also has an E coli urinary tract infection and oral candidiasis, which may have spread to the patient's esophagus. MEDICATIONS: This is day 4 of treatment with a combination of Zyvox, meropenem and micafungin. PHYSICAL EXAMINATION: Vital Signs: Temperature is 98.7 degrees, pulse 91, respirations 20, blood pressure 127/70. Patient weighs 176 pounds. General: This is an obese, lethargic, chronically ill-appearing, elderly female. She is in no acute distress. Head, eyes, ears, nose and throat: She can hear my spoken words and see near objects. She does not have a white coating on her tongue. Cardiovascular: Heart rate is irregular. Lungs: Clear to auscultation. Abdomen: Soft and nontender. Extremities: The patient has a PICC in her right arm, and the site is not erythematous or tender. Neurologic: Patient is lethargic. She did follow request to move her extremities. LAB AND X-RAY: The patient's CBC shows a white count of 10,370, hemoglobin 11.8, and platelet count 123,000. X-ray of the abdomen shows fecal impaction. Creatinine is 0.4. GFR is greater than 60. As mentioned above, the procalcitonin is less than 0.1. ASSESSMENT AND PLAN: The patient may have aspiration pneumonia. She also has Escherichia coli urinary tract infection and oral candidiasis, which may have spread to the esophagus. My plan is to continue the current treatment as outlined above, namely Zyvox, meropenem and micafungin. COMORBIDITIES: The patient is elderly and she is obese. She also aspirates. She is in atrial fibrillation. She has breast cancer. cc: Milan Villegas MD
[2018-10-25] MEDS: LOVENOX SUBQ SCH ×2 (08:47→21:52)
[2018-10-25] MEDS: ARIMIDEX PO SCH (08:48)
[2018-10-25] MEDS: LASIX IV SCH (08:48)
[2018-10-25] MEDS: COLACE PO SCH ×2 (08:48→21:53)
[2018-10-25] MEDS: COMBIGAN OPHTH SOLN RIGHT EYE SCH (08:48)
[2018-10-25] MEDS: ZYVOX 600 MG/D5W 600 MG/300 ML IVPB IV SCH ×2 (08:48→21:52)
--- NOTE | 2018-10-25 09:03 | Diag Imaging Result Doc PS360 ---
CHEST-1 VIEW - 10/25/2018 INDICATION: pneumonia COMPARISON: 10/24/2018 FINDINGS: Stable right PICC line in good position. Stable cardiomegaly. Stable significant bibasilar opacification mainly with sizable pleural effusions. Stable central interstitial infiltrates suggesting pulmonary edema. IMPRESSION: No change from prior. Electronically signed by Ar Serrano 10/25/2018 9:01 AM
--- NOTE | 2018-10-25 09:04 | Diag Imaging Result Doc PS360 ---
EXAM: ABDOMEN FLAT/UPRIGHT - 10/25/2018 HISTORY: constipation TECHNIQUE: Portable supine and upright abdomen COMPARISON: 10/24/2018 FINDINGS: There is decreased retained fecal debris in the rectum compared to prior. The bowel gas pattern appears nonspecific and nonobstructive. There is no free air identified. IMPRESSION: Decreased retained fecal debris in colon compared to prior. Nonspecific bowel gas pattern. Electronically signed by Wilder Stafford 10/25/2018 9:02 AM
[2018-10-25] MEDS: SENOKOT PO SCH (09:41)
[2018-10-25] MEDS ORDERED: SODIUM PHOSPHATE 30 MMOL in NS 250 ML IV ONE (14:20)
[2018-10-25] MEDS: MYCAMINE 100 MG in NS 100 ML IV SCH (14:35)
[2018-10-25] MEDS: CLINIMIX E 4.25%-5% SOLUTION 1,000 ML IV SCH (14:35)
--- NOTE | 2018-10-25 14:38 | PROGRESS NOTE ---
DATE: 10/25/2018 SUBJECTIVE: The patient is resting comfortably in bed. She is trying to eat her breakfast. OBJECTIVE: Vital Signs: Temperature 97 degrees, blood pressure 128/77, heart rate 73, respirations 20, O2 saturations 97% on 2 L nasal cannula. General: This is a chronically ill- appearing elderly female sitting up in bed, in no acute distress. Heart: S1, S2 normal. Regular rate and rhythm. Lungs: Equal air entry bilaterally. No crackles. No rales. Abdomen: Positive bowel sounds. Soft, nontender, nondistended. Extremities: 1+ edema. No cyanosis. No calf tenderness. Neurologic: The patient is alert and oriented. LABORATORY DATA: White blood cell count 10, hemoglobin 11, hematocrit 35, platelets 129,000. Sodium 132, potassium 4, chloride 94, CO2 28, BUN 14, creatinine 0.4, glucose 136, phosphorus 2.6, magnesium 1.7. DIAGNOSTIC STUDIES: Chest x-ray shows no change. ASSESSMENT AND PLAN: 1. Volume overload with congestive heart failure. Improved. 2. Oral candidiasis. The patient is currently on micafungin. 3. Urinary tract infection secondary to Escherichia coli. Continue on Merrem. 4. Constipation. Improved. Will continue with scheduled laxative therapy. 5. Severe protein-calorie malnutrition. Continue with the current diet. 6. History of breast cancer. Aware. 7. Atrial fibrillation. The patient is rate controlled. 8. Gastrointestinal prophylaxis. Continue on Protonix. 9. Deep vein thrombosis prophylaxis. The patient is on Lovenox. cc: Dori Goldstein MD
[2018-10-25] MEDS: CARDIZEM 100 MG/NS 100 MG/100 ML IVPB IV SCH (18:53)
[2018-10-25] MEDS: TYLENOL PR PRN (22:35)
[2018-10-25] MEDS ORDERED: NORCO-5 PO ONE (23:20)
[2018-10-26] MEDS: LUMIGAN 0.01% OPH SOLUTION RIGHT EYE SCH ×2 (00:22→23:06)
[2018-10-26] MEDS: COMBIGAN OPHTH SOLN RIGHT EYE SCH ×3 (00:22→23:11)
[2018-10-26] MEDS: MERREM 1 GM in NS 50 ML IV SCH ×3 (00:23→15:56)
[2018-10-26] MEDS: ATROVENT NEB INH SCH ×4 (03:40→15:26)
[2018-10-26] MEDS: XOPENEX NEB INH SCH ×4 (03:40→15:26)
[2018-10-26] MEDS: 1/2 NS 1,000 ML IV SCH (04:49)
[2018-10-26] MEDS ORDERED: SODIUM PHOSPHATE 40 MMOL in NS 250 ML IV ONE (06:40)
[2018-10-26] MEDS: ZYVOX 600 MG/D5W 600 MG/300 ML IVPB IV SCH ×2 (08:41→20:51)
[2018-10-26] MEDS: LOVENOX SUBQ SCH ×2 (08:42→20:50)
[2018-10-26] MEDS: LASIX IV SCH (08:42)
[2018-10-26] MEDS: COLACE PO SCH ×2 (08:42→20:50)
[2018-10-26] MEDS: SENOKOT PO SCH (08:42)
[2018-10-26] MEDS: ARIMIDEX PO SCH (08:44)
[2018-10-26 08:53] LABS: BASO# 0.01 X1000 (0.0-0.2); BASO% 0.1 % (0.0-0.8); EOS# 0.08 X1000 (0.0-0.7); EOS% 0.8 % (0.0-10.0); HEMATOCRIT 35.3 % (37.0-47.0); HEMOGLOBIN 11.9 g/dL (12.0-16.0); IMM GRAN# 0.08 X1000 (0.0-0.04); IMM GRAN% 0.8 % (0.0-0.5); LYMPH# 1.85 X1000 (1.2-3.4); LYMPH% 18.7 % (20.5-51.1); MCH 31.4 PG (27-31); MCHC 33.7 g/dL (33-37); MCV 93.1 FL (81-99); MONO# 3.08 X1000 (0.11-0.59); MONO% 31.2 % (1.7-9.3); MPV 10.6 FL (7.4-10.4); NEUT# 4.78 X1000 (1.4-6.5); NEUT% 48.4 % (42.2-75.2); PLT 107 X1000 (130-400); RBC 3.79 XMIL (4.2-5.4); RDW 14.9 % (11.5-14.5); WBC 9.88 X1000 (4.8-10.8)
[2018-10-26 08:54] LABS: AGAP 10; BUN 13 mg/dL (8-22); CALCIUM 8.3 mg/dL (8.8-10.2); CHLORIDE 93 mmol/L (98-107); COSMO 265; CREATININE 0.3 mg/dL (0.5-0.9); ESTIMATED GFR > 60; GLUCOSE 141 mg/dL (70-104); MAGNESIUM 1.6 mg/dL (1.5-2.7); PHOSPHORUS 3.2 mg/dL (2.7-4.5); POTASSIUM 4.1 mmol/L (3.5-5.1); SODIUM 131 mmol/L (136-145); TCO2 28 mmol/L (25-35)
[2018-10-26 09:32] LABS: LYMPHS 12 % (21-51); MONO 14 % (1-9); SEGS 70 % (42-75)
[2018-10-26] MEDS ORDERED: MAGNESIUM SULFATE 2 GM/S.W.I. 2 GM/50 ML IVPB IV ONE (09:49)
[2018-10-26] MEDS: CLINIMIX E 4.25%-5% SOLUTION 1,000 ML IV SCH (11:37)
[2018-10-26] MEDS: MYCAMINE 100 MG in NS 100 ML IV SCH (15:56)
[2018-10-26] MEDS: CARDIZEM CD PO SCH (16:04)
[2018-10-27] MEDS: XOPENEX NEB INH SCH ×7 (00:10→19:16)
[2018-10-27] MEDS: ATROVENT NEB INH SCH ×7 (00:10→19:16)
[2018-10-27] MEDS: MERREM 1 GM in NS 50 ML IV SCH ×4 (00:14→23:47)
[2018-10-27] MEDS: TYLENOL PR PRN (00:14)
--- NOTE | 2018-10-27 00:44 | PROGRESS NOTE ---
DATE: 10/26/2018 SUBJECTIVE: The patient is resting comfortably in bed. She has no complaints at this time. OBJECTIVE: Vital Signs: Temperature 97 degrees, blood pressure 145/95, heart rate 83, respirations 18, oxygen saturation 95% on 2 L nasal cannula. General: This is a chronically ill- appearing elderly female, lying in bed, in no acute distress. Heart: S1, S2 normal. Regular rate and rhythm. Lungs: Equal air entry bilaterally. No crackles. No rales. Abdomen: Positive bowel sounds. Soft, nontender, nondistended. Extremities: No edema, no cyanosis. Neurologic: The patient is awake and alert. LABS: White blood cell count 9.8, hemoglobin 11, hematocrit 35, platelets 107, 000. Sodium 131, potassium 4.1, chloride 93, CO2 28, BUN 13, creatinine 0.3, glucose 141, magnesium 1.6, phosphorus 3.2. ASSESSMENT AND PLAN: 1. Volume overload with congestive heart failure. Improved. Continue on Lasix. 2. Oral candidiasis. Continue on micafungin. 3. Urinary tract infection, secondary to Escherichia coli. Continue on Merrem. 4. Severe protein calorie malnutrition. Continue on the current diet. Advance as tolerated, with aspiration precautions. 5. History of breast cancer, with lymphedema. Aware. 6. Atrial fibrillation. The patient is rate controlled. 7. Gastrointestinal prophylaxis. Continue on Protonix. 8. DVT prophylaxis. Continue on Lovenox. cc: Dori Goldstein MD MTDD
[2018-10-27] MEDS ORDERED: NORCO-5 PO ONE (01:46)
[2018-10-27] MEDS: 1/2 NS 1,000 ML IV SCH (06:03)
[2018-10-27] MEDS: CLINIMIX E 4.25%-5% SOLUTION 1,000 ML IV SCH (06:04)
[2018-10-27 07:12] LABS: AGAP 11; BUN 16 mg/dL (8-22); CALCIUM 7.9 mg/dL (8.8-10.2); CHLORIDE 91 mmol/L (98-107); COSMO 263; CREATININE 0.3 mg/dL (0.5-0.9); ESTIMATED GFR > 60; GLUCOSE 154 mg/dL (70-104); POTASSIUM 4.3 mmol/L (3.5-5.1); SODIUM 129 mmol/L (136-145); TCO2 27 mmol/L (25-35)
[2018-10-27 08:14] LABS: BASO# 0.01 X1000 (0.0-0.2); BASO% 0.1 % (0.0-0.8); EOS# 0.07 X1000 (0.0-0.7); EOS% 0.7 % (0.0-10.0); HEMATOCRIT 34.8 % (37.0-47.0); HEMOGLOBIN 11.8 g/dL (12.0-16.0); IMM GRAN# 0.05 X1000 (0.0-0.04); IMM GRAN% 0.5 % (0.0-0.5); LYMPH% 13.6 % (20.5-51.1); MCH 31.5 PG (27-31); MCHC 33.9 g/dL (33-37); MCV 92.8 FL (81-99); MONO# 2.53 X1000 (0.11-0.59); MONO% 26.5 % (1.7-9.3); MPV 10.2 FL (7.4-10.4); NEUT% 58.6 % (42.2-75.2); PLT 93 X1000 (130-400); RBC 3.75 XMIL (4.2-5.4); RDW 14.9 % (11.5-14.5); WBC 9.56 X1000 (4.8-10.8)
[2018-10-27 08:19] LABS: INR 1.09
[2018-10-27] MEDS: ZYVOX 600 MG/D5W 600 MG/300 ML IVPB IV SCH ×2 (08:22→20:42)
[2018-10-27 08:24] LABS: BANDS 4 % (0-1); LYMPHS 4 % (21-51); MONO 18 % (1-9); SEGS 72 % (42-75)
[2018-10-27] MEDS ORDERED: ATIVAN IV PRN (08:40)
[2018-10-27] MEDS: ARIMIDEX PO SCH (10:29)
[2018-10-27] MEDS: CARDIZEM CD PO SCH (10:30)
[2018-10-27] MEDS: LOVENOX SUBQ SCH ×2 (10:30→20:44)
[2018-10-27] MEDS: COMBIGAN OPHTH SOLN RIGHT EYE SCH ×2 (10:30→20:44)
[2018-10-27] MEDS: COLACE PO SCH ×2 (10:30→20:42)
[2018-10-27] MEDS: LASIX IV SCH (10:30)
[2018-10-27] MEDS: SENOKOT PO SCH (10:30)
[2018-10-27] MEDS ORDERED: SAMSCA PO ONE (14:47)
--- NOTE | 2018-10-27 15:12 | PROGRESS NOTE ---
DATE: 10/27/2018 SUBJECTIVE: The patient is resting comfortably in bed. She has no complaints. OBJECTIVE: Vital Signs: Temperature 97.6, blood pressure 131/91, heart rate 88, respirations 16, O2 sats 96% on room air. General: This is an elderly female lying in bed in no acute distress. Heart: S1, S2 normal. Bradycardic. Lungs: Equal air entry bilaterally. No crackles. No rales. Abdomen: Positive bowel sounds. Soft, nontender, nondistended. Extremities: No edema. No cyanosis. Neurologic: The patient is awake and alert. LABS: White blood cell count 9.5, hemoglobin 11, hematocrit 34, platelets 93. Sodium 129, potassium 4.3, chloride 91, CO2 27, BUN 16, creatinine 0.3, glucose 154. ASSESSMENT AND PLAN: 1. Volume overload with congestive heart failure. Improved. The patient is currently on Lasix. Further management as per the button inspector. 2. Oral candidiasis. Continue on micafungin. 3. Urinary tract infection secondary to E coli. Continue on Merrem. 4. History of breast cancer with lymphedema. Aware. 5. Atrial fibrillation. The patient is rate controlled. 6. Anemia. Stable. 7. Hyponatremia. Will give the patient a dose of Samsca today. 8. DVT prophylaxis. The patient is currently on full dose Lovenox. 9. Will consult Physical Therapy. cc: Dori Goldstein MD
[2018-10-27] MEDS: MYCAMINE 100 MG in NS 100 ML IV SCH (15:45)
[2018-10-27] MEDS: LUMIGAN 0.01% OPH SOLUTION RIGHT EYE SCH (20:43)
[2018-10-28] MEDS: CLINIMIX E 4.25%-5% SOLUTION 1,000 ML IV SCH ×2 (03:16→21:10)
[2018-10-28] MEDS: XOPENEX NEB INH SCH ×7 (04:32→22:51)
[2018-10-28] MEDS: ATROVENT NEB INH SCH ×7 (04:32→22:51)
[2018-10-28] MEDS: TYLENOL PR PRN ×2 (04:53→14:21)
[2018-10-28] MEDS: MERREM 1 GM in NS 50 ML IV SCH ×3 (06:17→21:10)
[2018-10-28 07:04] LABS: AGAP 10; BUN 18 mg/dL (8-22); CALCIUM 8.7 mg/dL (8.8-10.2); CHLORIDE 96 mmol/L (98-107); COSMO 267; CREATININE 0.4 mg/dL (0.5-0.9); ESTIMATED GFR > 60; GLUCOSE 148 mg/dL (70-104); SODIUM 131 mmol/L (136-145); TCO2 25 mmol/L (25-35)
[2018-10-28] MEDS: LOVENOX SUBQ SCH ×2 (09:19→21:11)
[2018-10-28] MEDS: LASIX IV SCH (09:19)
[2018-10-28] MEDS: SENOKOT PO SCH (09:19)
[2018-10-28] MEDS: CARDIZEM CD PO SCH (09:19)
[2018-10-28] MEDS: ARIMIDEX PO SCH (09:19)
[2018-10-28] MEDS: COLACE PO SCH ×2 (09:20→21:11)
[2018-10-28] MEDS: COMBIGAN OPHTH SOLN RIGHT EYE SCH ×2 (09:27→21:11)
[2018-10-28] MEDS: ZYVOX 600 MG/D5W 600 MG/300 ML IVPB IV SCH ×2 (09:27→21:10)
[2018-10-28 09:29] LABS: BASO# 0.01 X1000 (0.0-0.2); BASO% 0.1 % (0.0-0.8); EOS# 0.08 X1000 (0.0-0.7); EOS% 0.9 % (0.0-10.0); HEMOGLOBIN 11.5 g/dL (12.0-16.0); IMM GRAN# 0.03 X1000 (0.0-0.04); IMM GRAN% 0.4 % (0.0-0.5); LYMPH% 17.5 % (20.5-51.1); MCH 31.5 PG (27-31); MCHC 33.8 g/dL (33-37); MCV 93.2 FL (81-99); MONO# 2.29 X1000 (0.11-0.59); MONO% 26.8 % (1.7-9.3); MPV 10.1 FL (7.4-10.4); NEUT# 4.64 X1000 (1.4-6.5); NEUT% 54.3 % (42.2-75.2); PLT 95 X1000 (130-400); RBC 3.65 XMIL (4.2-5.4); RDW 14.9 % (11.5-14.5); WBC 8.55 X1000 (4.8-10.8)
[2018-10-28 10:04] LABS: EOS 2 % (1-10); LYMPHS 18 % (21-51); MONO 20 % (1-9); SEGS 58 % (42-75)
--- NOTE | 2018-10-28 13:39 | PROGRESS NOTE ---
DATE: 10/28/2018 SUBJECTIVE: The patient is resting comfortably in bed. Her family is present at the bedside. OBJECTIVE: Vital Signs: Temperature 98.8 degrees, blood pressure 136/93, heart rate 119, respirations 16, O2 saturation 98% on 2 L nasal cannula. General: This is a chronically ill- appearing elderly female lying in bed in no acute distress. Heart: S1, S2 normal. Lungs: Equal air entry bilaterally, no rales, no wheezing. Abdomen: Positive bowel sounds. Soft, nontender, nondistended. Extremities: No edema, no cyanosis. Neuro: The patient is awake and will answer questions. LABS: Sodium 131, potassium 5, chloride 96, CO2 25, BUN 18, creatinine 0.4, glucose 148, white blood cell count 8.5, hemoglobin 11, hematocrit 34, platelets 95,000. ASSESSMENT AND PLAN: 1. Volume overload with congestive heart failure. Improved. The patient is on Lasix. 2. Oral candidiasis. Will await further recommendations from Dr. Villegas regarding continuation of the micafungin. 3. Urinary tract infection secondary to Escherichia coli. The patient is currently on Merrem. Will await conversion to an oral antibiotic by Dr. Villegas. 4. Atrial fibrillation. The patient is rate controlled. 5. History of breast cancer with lymphedema. Aware. 6. Chronic hyponatremia. Stable. 7. Disposition. The patient's power of attorney at law and daughter have decided that they want to take the patient home with hospice. Will consult with Palliative Care to make the arrangements. cc: Dori Goldstein MD MTDD
--- NOTE | 2018-10-28 14:03 | INFECTIOUS DISEASE PROGRESS NO ---
DATE: 10/28/2018 PRESENT ILLNESS: The patient is being treated for possible aspiration pneumonia. She also has an E coli urinary tract infection. She had oral candidiasis, but this has cleared. MEDICATIONS: This is the 7th day of treatment with a combination of Zyvox, meropenem and micafungin. PHYSICAL EXAMINATION: Vital Signs: Temperature is 98.6, pulse 119, respirations 16, blood pressure 136/93. General: This is an obese, chronically ill-appearing, very lethargic, elderly female. She does not appear to be in any acute distress. HEENT: No drainage noted from the nose or the ears. I could see a little bit of her tongue. There were no white patches on her tongue. Neck: No meningismus. Thorax: Increased AP diameter of the chest. Lungs: There were scattered rhonchi bilaterally. Cardiovascular: Heart rate was rapid and irregular. Abdomen: Soft and nontender. Extremities: Patient has a PICC in her right arm. The site is not erythematous or draining. Neurologic: The patient is very lethargic. She did not answer questions. She did not follow request to move her extremities. The patient does not have a tremor. LAB AND X-RAY: Chest x-ray shows bilateral infiltrates. Creatinine is 0.4. GFR is greater than 60. CBC shows a white count of 8550, hemoglobin 11.5, and platelet count 95,000. ASSESSMENT AND PLAN: The patient may have an aspiration pneumonia. She does have an E coli urinary tract infection. It appears to me her oral candidiasis has cleared. The patient is going to be going home in 1 to 2 days under hospice care. The family has asked me to have the patient go home on an antibiotic that she can take by mouth and hopefully their feeling is that will make the patient more comfortable. I am going to go ahead and write for Levaquin. I told them the best way to take it would be to crush it up and put it in some thickened fluids, or question they can put it in things like applesauce and hopefully the patient will not aspirate that. COMORBIDITIES: She is elderly. She is obese. She aspirates. She has atrial fibrillation, and she also has breast cancer. cc: Milan Villegas MD
[2018-10-28] MEDS: MYCAMINE 100 MG in NS 100 ML IV SCH (15:08)
[2018-10-28] MEDS: LUMIGAN 0.01% OPH SOLUTION RIGHT EYE SCH (21:11)
[2018-10-29] MEDS: MERREM 1 GM in NS 50 ML IV SCH ×4 (00:41→13:53)
[2018-10-29] MEDS: XOPENEX NEB INH SCH ×4 (03:49→16:13)
[2018-10-29] MEDS: ATROVENT NEB INH SCH ×4 (03:49→16:13)
[2018-10-29] MEDS: TYLENOL PR PRN ×2 (03:54→09:58)
[2018-10-29 06:22] LABS: BASO# 0.01 X1000 (0.0-0.2); BASO% 0.2 % (0.0-0.8); EOS# 0.07 X1000 (0.0-0.7); EOS% 1.1 % (0.0-10.0); HEMATOCRIT 27.7 % (37.0-47.0); HEMOGLOBIN 9.2 g/dL (12.0-16.0); LYMPH# 1.04 X1000 (1.2-3.4); LYMPH% 16.6 % (20.5-51.1); MCH 31.3 PG (27-31); MCHC 33.2 g/dL (33-37); MCV 94.2 FL (81-99); MPV 10.5 FL (7.4-10.4); NEUT# 3.64 X1000 (1.4-6.5); NEUT% 58.1 % (42.2-75.2); PLT 67 X1000 (130-400); RBC 2.94 XMIL (4.2-5.4); RDW 14.5 % (11.5-14.5); WBC 6.26 X1000 (4.8-10.8)
[2018-10-29 06:37] LABS: AGAP 11; BUN 21 mg/dL (8-22); CALCIUM 8.1 mg/dL (8.8-10.2); CHLORIDE 94 mmol/L (98-107); COSMO 272; CREATININE 0.5 mg/dL (0.5-0.9); ESTIMATED GFR > 60; GLUCOSE 148 mg/dL (70-104); POTASSIUM 4.3 mmol/L (3.5-5.1); SODIUM 133 mmol/L (136-145); TCO2 28 mmol/L (25-35)
[2018-10-29 06:57] LABS: LYMPHS 14 % (21-51); MONO 16 % (1-9); SEGS 66 % (42-75)
[2018-10-29] MEDS: ZYVOX 600 MG/D5W 600 MG/300 ML IVPB IV SCH (08:30)
[2018-10-29] MEDS: ARIMIDEX PO SCH (08:34)
[2018-10-29] MEDS: COMBIGAN OPHTH SOLN RIGHT EYE SCH (08:34)
[2018-10-29] MEDS: CARDIZEM CD PO SCH (08:34)
[2018-10-29] MEDS: SENOKOT PO SCH (08:34)
[2018-10-29] MEDS: LASIX IV SCH (08:35)
[2018-10-29] MEDS: COLACE PO SCH (08:35)
[2018-10-29] MEDS ORDERED: FLU VACCINE IM ONE (14:58)
[2018-10-29] MEDS: MYCAMINE 100 MG in NS 100 ML IV SCH (15:04)
[2018-10-29] MEDS ORDERED: NORCO-5 PO ONE (15:48)
[2018-10-29 16:06] VITALS: BP 139/82
--- NOTE | 2018-10-29 19:31 | DISCHARGE SUMMARY ---
ADMISSION DATE: 10/14/2018 DISCHARGE DATE: 10/29/2018 PRINCIPAL DIAGNOSIS: Sepsis. SECONDARY DIAGNOSES: 1. Urinary tract infection. 2. Community-acquired pneumonia. 3. Atrial fibrillation. 4. Hypertension. 5. History of breast cancer. 6. History of glaucoma. 7. Legal blindness. 8. Poor oral intake. DISCHARGE MEDICATIONS: Include the following -Levaquin 500 mg p.o. once a day, amlodipine 10 mg p.o. daily, famotidine 20 mg p.o. in the morning, metoprolol 100 mg p.o. daily, lisinopril/hydrochlorothiazide 20/12.5 daily, Combigan ophthalmic eyedrops 1 drop right eye twice a day, Lumigan 1 drop right eye at bedtime, anastrazole 1 mg p.o. daily. CONSULTATIONS DONE DURING THIS HOSPITAL STAY: 1. Dr. Milan Villegas, Infectious Disease. 2. Dr. Alex Grace, Cardiology. PROCEDURES DONE DURING THIS HOSPITAL STAY: Echocardiogram 10/15/2018. HOSPITAL COURSE: Ms. Nenita Carrillo is an 88-year-old female with a history of atrial fibrillation, hypertension, left breast cancer, glaucoma, and bilateral knee arthritis, who was admitted to the hospital on 10/14/2018 and was diagnosed as having urinary tract infection as well as community- acquired pneumonia. The patient was septic at the time of presentation and had to be placed in the intensive care unit, where she was initially managed. Her urine culture came back positive for E coli. Antibiotic management was done by Dr. Milan Villegas, Infectious Disease. The patient was also seen by the Cardiology team for atrial fibrillation. VITAL SIGNS: As of today which is 10/29/2018, vital signs were 98.3, pulse 138 , respiratory rate is 16, blood pressure 136/101, oxygen saturation is 98%. DISPOSITION: The patient will be going home with hospice. cc: Jose Miguel Shukla MD [facility]
== END 2018-10-29 18:08 | disposition hospice, home (50) | DRG 871 ==
LOC: SUPCPDRO → ED 12:28 → EDIPHOLD 17:11 → SUATTDRO 17:11 → ICU 18:35 → 3S 10-19 20:28 → 4N 10-26 18:31
PROVIDERS: ATTEND Internal Medicine
CPT/HCPCS: 36569; 70450; 71010; 71045; 72020; 74019; 74020; 74022; 80048; 80053; 80202; 81001; 82040; 82550; 82784; 82805; 83036; 83605; 83735; 83880; 84100; 84145; 84443; 84484; 85025; 85027; 85610; 85730; 86022; 87040; 87077; 87088; 87186; 90686; 92526; 92610; 93005; 93306; 94640; 94761; 94799; 96361; 96365; 96366; 96368; 96375; 96376; 97110; 97162; 99285; 99291; A9270; J1160; J1630; J1650; J1940; J2020; J2185; J2248; J2270; J2405; J2543; J3370; J3475; J3480; J3486; J7030; J7040; J7050; S0170